=== PATIENT | male | born 1975 | race Caucasian/White ===

== ENCOUNTER 2016-03-01 10:53 | Emergency (ER) | payer MEDICAID ==
[~2016-03-01 10:53] MED LIST: ACET50TA PO; ALBU17IN INH; DEPA500T2 PO; DILA100C PO; DOCU10ELUD PO; LIDO1DIS2 TD; NEUR300C PO; OXYC-274 PO; PERC7.5T12 PO; SENO8.6T9 PO; [UNRECOGNIZED DRUG - MIXTURE] PO
[2016-03-01] MEDS ORDERED: ASPIRIN 81 MG CHEW TABLET As Ordered ONE (11:20)
--- NOTE | 2016-03-01 11:28 | REP ---
Chest one-view HISTORY: Chest pain Comparison: 01/05/2015 The lungs are clear. The heart is normal in size. The pulmonary vasculature is normal in appearance. Impression: No acute disease. Signed by Graham Will MD 03/01/2016 11:19 A
[2016-03-01 11:29] LABS: BASO % 0.4 % (0.0-1.0); EOS # 0.2 K/mm3 (0.0-0.50); EOS % 2.1 % (0.0-3.0); LARGE UNSTAINED CELL # 0.1 K/mm3 (0.0-0.4); LARGE UNSTAINED CELL % 1.5 % (0.0-4.0); LYMPH # 2.2 K/mm3 (1.5-4.5); LYMPH % 30.5 % (24.0-44.0); MEAN CORPUSCULAR HEMOGLOBIN 31.6 pg (27.0-33.0); MEAN CORPUSCULAR VOLUME 87.7 fl (80.0-96.0); MONO # 0.5 K/mm3 (0.0-0.8); MONO % 6.9 % (0.0-5.0); NEUTROPHILS # 4.2 K/mm3 (1.8-7.7); NEUTROPHILS % 58.7 % (36.0-66.0); PLATELET COUNT, AUTOMATED 178 k/mm3 (150-450); RED CELL DISTRIBUTION WIDTH 12.5 % (11.5-14.5); WHITE BLOOD COUNT 7.1 K/mm3 (4.0-10.0)
[2016-03-01 11:54] LABS: ANION GAP 9 MEQ/L (8-16); BLOOD UREA NITROGEN 11 MG/DL (7-18); CALCIUM LEVEL 8.4 MG/DL (8.5-10.1); CARBON DIOXIDE LEVEL 28 MEQ/L (21-32); CHLORIDE LEVEL 106 MEQ/L (98-107); CREATININE FOR GFR 0.74 MG/DL (0.70-1.30); GLOMERULAR FILTRATION RATE > 60.0 (>60); GLUCOSE, FASTING 134 MG/DL (70-105); POTASSIUM SERUM 3.7 MEQ/L (3.5-5.1); SODIUM LEVEL 143 MEQ/L (136-145)
[2016-03-01] MEDS ORDERED: PHENYTOIN ER 100 MG CAP As Ordered ONE (15:18)
--- NOTE | 2016-03-01 15:25 | EDDOCDS ---
Nurse's Notes [facility] Name: Festus Mccurdy Age: 40 yrs Sex: Male : 1975 Arrival Date: 03/01/2016 Time: 10:53 Bed 4 Private MD: Diagnosis: Chest pain, unspecified;Palpitations Presentation: 03/01 11:03 Presenting complaint: Patient states: chest pain radiating down left arm since kc3 yesterday morning. Pt denies shortness of breath or n/v. Aspirin was not taken prior to arrival. Adult Sepsis Screening: The patient does not have new or worsening altered mentation. Patient's respiratory rate is less than 22. Systolic blood pressure is greater than 100. Patient has a qSOFA score of 0- Negative Sepsis Screen. Suicide/Homicide risk assessment- the patient denies having any suicidal and/or homicidal ideations and does not present with any other emotional, behavioral or mental health complaints. Status: Patient is not a chief optometry service or dependent. Transition of care: patient was not received from another setting of care. 11:03 Acuity: DOMENIC Level 2 kc3 11:03 Method Of Arrival: Walkin/Carried/Asstd kc3 Triage Assessment: 11:06 General: Appears in no apparent distress, comfortable, Behavior is appropriate for age, kc3 cooperative. Pain: Location: chest Pain currently is 4 out of 10 on a pain scale. HIV screening NA for this visit Offered previously. The patient is triaged at the bedside. See Assessment in Nurses Notes section of ED record. Neurological: Level of Consciousness is awake, alert, obeys commands, Oriented to person, place, time. Cardiovascular: Rhythm is sinus rhythm Chest pain is described as Pain is 4 out of 10 on a pain scale. quality is tightness radiates to left arm(s) episodes are continuous began yesterday morning. Respiratory: Airway is patent Respiratory effort is even, unlabored, Respiratory pattern is regular, symmetrical, Denies shortness of breath. GI: Denies nausea. Derm: Skin is pink, warm & dry. Musculoskeletal: Circulation, motion, and sensation intact. Historical: - Allergies: no known allergies; - Home Meds: 1. albuterol sulfate 90 mcg/actuation Inhl HFAA 2 puffs as needed 2. Calcium + Vitamin D 600 mg calcium- 200 unit Oral tab twice a day 3. Depakote 1000mg Oral 2 times per day 4. gabapentin 100 mg Oral cap twice a day 5. meloxicam oral Unknown once daily 6. Phenytoin 400mg Oral twice a day - PMHx: Asthma; Hypertension; Seizure Disorder; TBI; - PSHx: hip surgery; pelvis ORIF; - Social history: Smoking status: Patient states was never smoker of tobacco. No barriers to communication noted, The patient speaks fluent Divehi, Speaks appropriately for age. - Family history: Not pertinent. - : The pt / caregiver states he / she is not on anticoagulants. Home medication list is obtained from the patient. - Exposure Risk Screening:: None identified. Screenin:08 Screening information is obtained from the patient. Fall risk: No risks identified. kc3 Assistance ADL's: requires no assistance with activities of daily living. Abuse/DV Screen: The patient / caregiver reports he/she is: not in a situation that causes fear, pain or injury. Nutritional screening: No deficits noted. Advance Directives: Currently, there is no health care proxy. home support is adequate. Assessment: 11:19 General: See triage note for initial assessment. . kc3 12:18 General: Appears in no apparent distress, comfortable, Behavior is appropriate for age, kc3 cooperative. Pain: Location: chest Pain currently is 3 out of 10 on a pain scale. Neurological: Level of Consciousness is awake, alert, obeys commands, Oriented to person, place, time. Cardiovascular: Rhythm is sinus rhythm. Respiratory: Airway is patent Respiratory effort is even, unlabored. 13:26 General: Appears in no apparent distress, comfortable, Behavior is appropriate for age, kc3 cooperative, Pt updated on plan of care. . Pain: Location: chest Pain currently is 3 out of 10 on a pain scale. Neurological: Level of Consciousness is awake, alert, obeys commands, Oriented to person, place, time. Cardiovascular: Rhythm is sinus rhythm. Respiratory: Respiratory effort is even, unlabored. Derm: Skin is pink, warm & dry. 14:46 General: Appears in no apparent distress, comfortable, Behavior is appropriate for age, kc3 cooperative. 15:22 General: Patient instructed on discharge instructions. Patient asked if there were any jmb questions regarding discharge, patient stated no. IV discontinued per hospital policy. Patient signed discharge instructions. Patient discharged in stable condition. . Vital Signs: 10:56 BP 153 / 85; Pulse 90; Resp 18; Temp 98.9(O); Pulse Ox 98% on R/A; Weight 158.3 kg; elp Height 5 ft. 9 in. (175.26 cm); 11:02 BP 120 / 87 (auto/); kc3 11:04 Pulse 98 MON; Pulse Ox 94% ; kc3 11:32 BP 122 / 79 (auto/); kc3 11:32 Pulse 94 MON; Pulse Ox 92% ; kc3 12:02 BP 127 / 73 (auto/); kc3 12:02 Pulse 92 MON; Pulse Ox 93% ; kc3 12:32 BP 124 / 72 (auto/); kc3 12:32 Pulse 94 MON; Pulse Ox 92% ; kc3 13:02 BP 127 / 74 (auto/); kc3 13:02 Pulse 98 MON; Pulse Ox 93% ; kc3 15:22 BP 130 / 80; Pulse 81; Resp 18; Temp 98.2(O); Pulse Ox 94% on R/A; Pain 0/10; jmb 10:56 Body Mass Index 51.54 (158.30 kg, 175.26 cm) elp Vitals: 10:56 Log In Time: March 01, 2016 at 10:54. RN notified that patient meets Red Flag elp criteria. ED Course: 10:55 Patient visited by Roma Daily PCA. elp 10:55 Patient moved to Waiting elp 10:57 Patient moved to 4 elp 10:59 Cyndi Moralez MD is Attending Physician. fg 10:59 Patient visited by Cyndi Moralez MD. fg 11:01 Iris Lugo,CARLOS ALBERTO is Primary Nurse. kc3 11:04 Triage Initiated kc3 11:08 The patient / caregiver is instructed regarding the plan of care and ED course. Cardiac kc3 monitor on. Pulse ox on. NIBP on. 11:11 Patient visited by Melanie Pickens PCA. bnb 11:11 EKG done. (by ED staff). Reviewed by Cyndi Moralez MD. bnb 11:19 B-Type Natiuretic Peptide Sent. kc3 11:19 Basic Metabolic Profile Sent. kc3 11:19 CBC with Diff Sent. kc3 11:19 Cardiac Injury Profile Sent. kc3 11:19 Troponin Sent. kc3 11:19 Inserted saline lock: 20 gauge in right antecubital area and blood collected. The kc3 patient tolerated the procedure well. Labs drawn. (by ED staff). Sent per order to lab. 11:20 Patient visited by Iris Lugo RN. kc3 11:48 Patient name changed from Festus\S\Pepe\S\Labarge\S\ to Festus\S\M\S\Labarge. EDMS 11:52 [facility] Payment Agreement was scanned into [employer] and attached to record. lg 11:52 portable chest Returned. EDMS 11:56 Patient visited by Iris Lugo RN. kc3 12:42 Patient visited by Iris Lugo RN. kc3 13:20 Patient visited by Tamiko Thomas PCA. rs6 14:00 Patient visited by Iris Lugo RN. kc3 14:34 Patient visited by Iris Lugo RN. kc3 15:22 Discontinued lock intact, bleeding controlled, pressure dressing applied, No jmb redness/swelling at site. No procedures done that require assistance. Administered Medications: 11:23 Drug: Aspirin 324 mg [aspirin 81 mg chewable tablet (4 tabs)] Route: PO; kc3 15:22 Drug: Phenytoin 300 mg [phenytoin 50 mg chewable tablet (6 tabs)] Route: PO; jmb Order Results: Lab Order: B-Type Natiuretic Peptide; SPEC'M 03/01/16 11:17 Test: BRAIN NATRIURETIC PEPTIDE; Value: < 5.0; Range: <100; Units: PG/ML; Status: F Lab Order: Basic Metabolic Profile; SPEC'M 03/01/16 11:17 Test: GLUCOSE, FASTING; Value: 134; Range: 70-105; Abnormal: Above high normal; Units: MG/DL; Status: F Test: BLOOD UREA NITROGEN; Value: 11; Range: 7-18; Units: MG/DL; Status: F Test: CREATININE FOR GFR; Value: 0.74; Range: 0.70-1.30; Units: MG/DL; Status: F Test: GLOMERULAR FILTRATION RATE; Value: > 60.0; Range: >60; Status: F Test: SODIUM LEVEL; Value: 143; Range: 136-145; Units: MEQ/L; Status: F Test: POTASSIUM SERUM; Value: 3.7; Range: 3.5-5.1; Units: MEQ/L; Status: F Test: CHLORIDE LEVEL; Value: 106; Range: 98-107; Units: MEQ/L; Status: F Test: CARBON DIOXIDE LEVEL; Value: 28; Range: 21-32; Units: MEQ/L; Status: F Test: ANION GAP; Value: 9; Range: 8-16; Units: MEQ/L; Status: F Test: CALCIUM LEVEL; Value: 8.4; Range: 8.5-10.1; Abnormal: Below low normal; Units: MG/DL; Status: F Test Note: ; Units are mL/min/1.73 m2 Chronic Kidney Disease Staging per NKF: Stage I & II GFR >=60 Normal to Mildly Decreased Stage III GFR 30-59 Moderately Decreased Stage IV GFR 15-29 Severely Decreased Stage V GFR <15 Very Little GFR Left ESRD GFR <15 on THERAPIST PHYSICAL Lab Order: CBC with Diff; SPEC'M 03/01/16 11:17 Test: WHITE BLOOD COUNT; Value: 7.1; Range: 4.0-10.0; Units: K/mm3; Status: F Test: RED BLOOD COUNT; Value: 4.93; Range: 4.30-6.10; Units: M/mm3; Status: F Test: HEMOGLOBIN; Value: 15.6; Range: 14.0-18.0; Units: g/dl; Status: F Test: HEMATOCRIT; Value: 43.3; Range: 42.0-52.0; Units: %; Status: F Test: MEAN CORPUSCULAR VOLUME; Value: 87.7; Range: 80.0-96.0; Units: fl; Status: F Test: MEAN CORPUSCULAR HEMOGLOBIN; Value: 31.6; Range: 27.0-33.0; Units: pg; Status: F Test: MEAN CORPUSCULAR HGB CONC; Value: 36.0; Range: 32.0-36.5; Units: g/dl; Status: F Test: RED CELL DISTRIBUTION WIDTH; Value: 12.5; Range: 11.5-14.5; Units: %; Status: F Test: PLATELET COUNT, AUTOMATED; Value: 178; Range: 150-450; Units: k/mm3; Status: F Test: NEUTROPHILS %; Value: 58.7; Range: 36.0-66.0; Units: %; Status: F Test: LYMPH %; Value: 30.5; Range: 24.0-44.0; Units: %; Status: F Test: MONO %; Value: 6.9; Range: 0.0-5.0; Abnormal: Above high normal; Units: %; Status: F Test: EOS %; Value: 2.1; Range: 0.0-3.0; Units: %; Status: F Test: BASO %; Value: 0.4; Range: 0.0-1.0; Units: %; Status: F Test: LARGE UNSTAINED CELL %; Value: 1.5; Range: 0.0-4.0; Units: %; Status: F Test: NEUTROPHILS #; Value: 4.2; Range: 1.8-7.7; Units: K/mm3; Status: F Test: LYMPH #; Value: 2.2; Range: 1.5-4.5; Units: K/mm3; Status: F Test: MONO #; Value: 0.5; Range: 0.0-0.8; Units: K/mm3; Status: F Test: EOS #; Value: 0.2; Range: 0.0-0.50; Units: K/mm3; Status: F Test: BASO #; Value: 0.0; Range: 0.0-0.2; Units: K/mm3; Status: F Test: LARGE UNSTAINED CELL #; Value: 0.1; Range: 0.0-0.4; Units: K/mm3; Status: F Lab Order: Cardiac Injury Profile; SPEC'M 03/01/16 11:17 Test: CPK CREATINE PHOSPHOKINASE; Value: 147; Range: 39-308; Units: U/L; Status: F Test: CK-MB VALUE MASS; Value: 3.8; Range: 0.0-3.6; Abnormal: Above high normal; Units: NG/ML; Status: F Test: MB/CK RELATIVE INDEX; Value: 2.58; Range: < OR =4; Status: F Test Note: ; DIAGNOSIS CRITERIA MMB ng/ml Relative Index (RI) NON-AMI < or = 5 N/A [place]ONE > 5 < or = 4 AMI > 5 > 4 Lab Order: Troponin; SPEC'M 03/01/16 11:17 Test: TROPONIN I; Value: < 0.02; Range: < 0.10; Units: NG/ML; Status: F Test Note: ; Troponin I Reference Interval for Siemens StatusPage LOCI: 99th Percentile= 0.00-0.045 ng/ml Risk Stratification: <= 0.10 ng/ml Decreased Risk for Adverse Clinical Events. 0.10-1.50 ng/ml Increased Risk for Adverse Clinical Events. Evaluation of additional criterion and/or repeat testing in 2-6 hours is suggested to rule out myocardial damage. >= 1.50 ng/ml Indicative of Myocardial Injury. Lab Order: PHENYTOIN; SPEC'M 03/01/16 11:17 Test: PHENYTOIN (DILANTIN); Value: 8.6; Range: 10.0-20.0; Abnormal: Below low normal; Units: UG/ML; Status: F Lab Order: VALPROIC ACID (DEPAKOTE); SPEC'M 03/01/16 11:17 Test: VALPROIC ACID (DEPAKOTE); Value: 69.4; Range: 50.0-100.0; Units: UG/ML; Status: F Radiology Order: portable chest Test: portable chest REASON FOR EXAMINATION: Chest Pain; Chest one-view; ; HISTORY: Chest pain; ; Comparison: 01/05/2015; ; The lungs are clear. The heart is normal in size. The pulmonary vasculature is; normal in appearance.; ; Impression: No acute disease.; ; ; Signed by; Graham Will MD 03/01/2016 11:19 A; Outcome: 15:08 Discharge ordered by Provider. fg 15:22 Discharge Assessment: Patient awake, alert and oriented x 3. No cognitive and/or jmb functional deficits noted. Patient verbalized understanding of disposition instructions. Patient awake and alert. obeys commands, Oriented to person, place and time. Patient verbalized understanding of disposition instructions. Patient has no functional deficits. patient administered narcotics - no. The following High Risk Discharge criteria are identified: None. Discharged to home ambulatory. Condition: stable Condition: improved. Discharge instructions given to patient, Instructed on discharge instructions, follow up and referral plans. Demonstrated understanding of instructions, Pt was receptive of discharge instructions/ teaching. No special radiology studies were completed. Property sent home with patient. 15:25 Patient left the ED. ac Signatures: Dispatcher [employer] EDMS Yessi Escoto, Reg Reg lg Killian, Roma, DISTRIBUTION CENTER ASSISTANT DISTRIBUTION CENTER ASSISTANT mynorp Julius Pickens,RN RN Tamiko Barnes, DISTRIBUTION CENTER ASSISTANT DISTRIBUTION CENTER ASSISTANT rs6 Cyndi Moralez MD MD fg Crane, Kelsi, RN RN 3 Mel[facility] Pickens, [facility] Corrections: (The following items were deleted from the chart) 12:44 12:42 PHENYTOIN (DILANTIN)+LAB sent. 3 EDMS 12:44 12:42 VALPROIC ACID (DEPAKOTE)+LAB sent. 3 EDMS MTDD
--- NOTE | 2016-03-01 15:25 | EDDOCDS ---
Physician Documentation [facility] Name: Festus Mccurdy Age: 40 yrs Sex: Male : 1975 Arrival Date: 03/01/2016 Time: 10:53 Bed 4 Private MD: Disposition: 03/01/16 15:08 Discharged to Home/Self Care. Impression: Chest pain, unspecified, Palpitations. - Condition is Stable. - Discharge Instructions: Nonspecific Chest Pain, Seizure, Adult, [place]. - Medication Reconciliation, Local Pharmacy Hours form. - Follow up: Private Physician; When: Call to arrange an appointment; Reason: Continuance of care. - Problem is new. - Symptoms have improved. Historical: - Allergies: no known allergies; - Home Meds: 1. albuterol sulfate 90 mcg/actuation Inhl HFAA 2 puffs as needed 2. Calcium + Vitamin D 600 mg calcium- 200 unit Oral tab twice a day 3. Depakote 1000mg Oral 2 times per day 4. gabapentin 100 mg Oral cap twice a day 5. meloxicam oral Unknown once daily 6. Phenytoin 400mg Oral twice a day - PMHx: Asthma; Hypertension; Seizure Disorder; TBI; - PSHx: hip surgery; pelvis ORIF; - Social history: Smoking status: Patient states was never smoker of tobacco. No barriers to communication noted, The patient speaks fluent Gambian, Speaks appropriately for age. - Family history: Not pertinent. - : The pt / caregiver states he / she is not on anticoagulants. Home medication list is obtained from the patient. - Exposure Risk Screening:: None identified. Vital Signs: 03/01 10:56 BP 153 / 85; Pulse 90; Resp 18; Temp 98.9(O); Pulse Ox 98% on R/A; Weight 158.3 kg / elp 348.99 lbs; Height 5 ft. 9 in. (175.26 cm); 11:02 BP 120 / 87 (auto/); kc3 11:04 Pulse 98 MON; Pulse Ox 94% ; kc3 11:32 BP 122 / 79 (auto/); kc3 11:32 Pulse 94 MON; Pulse Ox 92% ; kc3 12:02 BP 127 / 73 (auto/); kc3 12:02 Pulse 92 MON; Pulse Ox 93% ; kc3 12:32 BP 124 / 72 (auto/); kc3 12:32 Pulse 94 MON; Pulse Ox 92% ; kc3 13:02 BP 127 / 74 (auto/); kc3 13:02 Pulse 98 MON; Pulse Ox 93% ; kc3 15:22 BP 130 / 80; Pulse 81; Resp 18; Temp 98.2(O); Pulse Ox 94% on R/A; Pain 0/10; jmb 10:56 Body Mass Index 51.54 (158.30 kg, 175.26 cm) elp MDM: 11:00 Aspirin Chewable Tablet 324 mg PO once ordered. fg 11:00 Community Development Manager/Pulse Ox/q 30 min VS ordered. fg 11:00 IV Saline Lock ordered. fg 11:00 Rhythm Strip to chart ordered. fg 11:00 Undress patient appropriately for examination ordered. fg 11:01 portable chest Ordered. EDMS 11:01 B-Type Natiuretic Peptide Ordered. EDMS 11:01 Basic Metabolic Profile Ordered. EDMS 11:01 CBC with Diff Ordered. EDMS 11:01 Cardiac Injury Profile Ordered. EDMS 11:01 Troponin Ordered. EDMS 11:01 ECG WITH READING ER PHYS+CARDIAG ordered. EDMS 11:34 Financial registration complete. lg 11:52 [facility] Payment Agreement was scanned into [employer] and attached to record. lg 15:05 Phenytoin Chewable Tablet 300 mg PO once ordered. fg Administered Medications: 11:23 Drug: Aspirin 324 mg [aspirin 81 mg chewable tablet (4 tabs)] Route: PO; kc3 15:22 Drug: Phenytoin 300 mg [phenytoin 50 mg chewable tablet (6 tabs)] Route: PO; ac Signatures: Dispatcher [employer] EDMS Yessi Escoto, Reg Reg lg Julius Pickens RN RN kristianb Cyndi Moralez MD MD Iris Lugo,CARLOS ALBERTO RN kc3 The chart was reviewed and I authenticate all verbal orders and agree with the evaluation and treatment provided.Corrections: (The following items were deleted from the chart) 12:44 12:21 VALPROIC ACID (DEPAKOTE)+LAB ordered. EDMS EDMS 12:44 12:21 PHENYTOIN (DILANTIN)+LAB ordered. EDMS EDMS Attachments: 11:52 [facility] Payment Agreement lg MTDD
--- NOTE | 2016-03-02 06:45 | ECGEPIP ---
Stationary ECG Study [facility] - ED Test Date: 2016-03-01 Pat Name: LUCILLE GRIFFITH Department: Room: - Gender: M Communications Operator: : 1975 Requested By: DANYELLE Hay Order Number: [id number] Reading MD: Denisse Black Measurements Intervals [place] Rate: 87 P: 47 NH: 185 QRS: -5 QRSD: 118 T: 73 QT: 347 QTc: 418 Interpretive Statements SINUS RHYTHM MODERATE INTRAVENTRICULAR CONDUCTION DELAY NONSPECIFIC T-WAVE ABNORMALITY DECREASED RATE 02/09/13 Electronically Signed On 03-02-2016 6:45:19 EST by Denisse Black
--- NOTE | 2016-03-03 16:26 | EDDOCDS ---
Nurse's Notes [facility] Name: Lucille Griffith Age: 40 yrs Sex: Male : 1975 Arrival Date: 03/01/2016 Time: 10:53 Bed 4 Private MD: Diagnosis: Chest pain, unspecified;Palpitations Presentation: 03/01 11:03 Presenting complaint: Patient states: chest pain radiating down left arm since kc3 yesterday morning. Pt denies shortness of breath or n/v. Aspirin was not taken prior to arrival. Adult Sepsis Screening: The patient does not have new or worsening altered mentation. Patient's respiratory rate is less than 22. Systolic blood pressure is greater than 100. Patient has a qSOFA score of 0- Negative Sepsis Screen. Suicide/Homicide risk assessment- the patient denies having any suicidal and/or homicidal ideations and does not present with any other emotional, behavioral or mental health complaints. Status: Patient is not a service center representative or dependent. Transition of care: patient was not received from another setting of care. 11:03 Acuity: DOMENIC Level 2 kc3 11:03 Method Of Arrival: Walkin/Carried/Asstd kc3 Triage Assessment: 11:06 General: Appears in no apparent distress, comfortable, Behavior is appropriate for age, kc3 cooperative. Pain: Location: chest Pain currently is 4 out of 10 on a pain scale. HIV screening NA for this visit Offered previously. The patient is triaged at the bedside. See Assessment in Nurses Notes section of ED record. Neurological: Level of Consciousness is awake, alert, obeys commands, Oriented to person, place, time. Cardiovascular: Rhythm is sinus rhythm Chest pain is described as Pain is 4 out of 10 on a pain scale. quality is tightness radiates to left arm(s) episodes are continuous began yesterday morning. Respiratory: Airway is patent Respiratory effort is even, unlabored, Respiratory pattern is regular, symmetrical, Denies shortness of breath. GI: Denies nausea. Derm: Skin is pink, warm & dry. Musculoskeletal: Circulation, motion, and sensation intact. Historical: - Allergies: no known allergies; - Home Meds: 1. albuterol sulfate 90 mcg/actuation Inhl HFAA 2 puffs as needed 2. Calcium + Vitamin D 600 mg calcium- 200 unit Oral tab twice a day 3. Depakote 1000mg Oral 2 times per day 4. gabapentin 100 mg Oral cap twice a day 5. meloxicam oral Unknown once daily 6. Phenytoin 400mg Oral twice a day - PMHx: Asthma; Hypertension; Seizure Disorder; TBI; - PSHx: hip surgery; pelvis ORIF; - Social history: Smoking status: Patient states was never smoker of tobacco. No barriers to communication noted, The patient speaks fluent Welsh, Speaks appropriately for age. - Family history: Not pertinent. - : The pt / caregiver states he / she is not on anticoagulants. Home medication list is obtained from the patient. - Exposure Risk Screening:: None identified. Screenin:08 Screening information is obtained from the patient. Fall risk: No risks identified. kc3 Assistance ADL's: requires no assistance with activities of daily living. Abuse/DV Screen: The patient / caregiver reports he/she is: not in a situation that causes fear, pain or injury. Nutritional screening: No deficits noted. Advance Directives: Currently, there is no health care proxy. home support is adequate. Assessment: 11:19 General: See triage note for initial assessment. . kc3 12:18 General: Appears in no apparent distress, comfortable, Behavior is appropriate for age, kc3 cooperative. Pain: Location: chest Pain currently is 3 out of 10 on a pain scale. Neurological: Level of Consciousness is awake, alert, obeys commands, Oriented to person, place, time. Cardiovascular: Rhythm is sinus rhythm. Respiratory: Airway is patent Respiratory effort is even, unlabored. 13:26 General: Appears in no apparent distress, comfortable, Behavior is appropriate for age, kc3 cooperative, Pt updated on plan of care. . Pain: Location: chest Pain currently is 3 out of 10 on a pain scale. Neurological: Level of Consciousness is awake, alert, obeys commands, Oriented to person, place, time. Cardiovascular: Rhythm is sinus rhythm. Respiratory: Respiratory effort is even, unlabored. Derm: Skin is pink, warm & dry. 14:46 General: Appears in no apparent distress, comfortable, Behavior is appropriate for age, kc3 cooperative. 15:22 General: Patient instructed on discharge instructions. Patient asked if there were any jmb questions regarding discharge, patient stated no. IV discontinued per hospital policy. Patient signed discharge instructions. Patient discharged in stable condition. . Vital Signs: 10:56 BP 153 / 85; Pulse 90; Resp 18; Temp 98.9(O); Pulse Ox 98% on R/A; Weight 158.3 kg; elp Height 5 ft. 9 in. (175.26 cm); 11:02 BP 120 / 87 (auto/); kc3 11:04 Pulse 98 MON; Pulse Ox 94% ; kc3 11:32 BP 122 / 79 (auto/); kc3 11:32 Pulse 94 MON; Pulse Ox 92% ; kc3 12:02 BP 127 / 73 (auto/); kc3 12:02 Pulse 92 MON; Pulse Ox 93% ; kc3 12:32 BP 124 / 72 (auto/); kc3 12:32 Pulse 94 MON; Pulse Ox 92% ; kc3 13:02 BP 127 / 74 (auto/); kc3 13:02 Pulse 98 MON; Pulse Ox 93% ; kc3 15:22 BP 130 / 80; Pulse 81; Resp 18; Temp 98.2(O); Pulse Ox 94% on R/A; Pain 0/10; jmb 10:56 Body Mass Index 51.54 (158.30 kg, 175.26 cm) elp Vitals: 10:56 Log In Time: March 01, 2016 at 10:54. RN notified that patient meets Red Flag elp criteria. ED Course: 10:55 Patient visited by Roma Daily PCA. elp 10:55 Patient moved to Waiting elp 10:57 Patient moved to 4 elp 10:59 Cyndi Moralez MD is Attending Physician. fg 10:59 Patient visited by Cyndi Moralez MD. fg 11:01 Iris Lugo,CARLOS ALBERTO is Primary Nurse. kc3 11:04 Triage Initiated kc3 11:08 The patient / caregiver is instructed regarding the plan of care and ED course. Cardiac kc3 monitor on. Pulse ox on. NIBP on. 11:11 Patient visited by Melanie Pickens PCA. bnb 11:11 EKG done. (by ED staff). Reviewed by Cyndi Moralez MD. bnb 11:19 B-Type Natiuretic Peptide Sent. kc3 11:19 Basic Metabolic Profile Sent. kc3 11:19 CBC with Diff Sent. kc3 11:19 Cardiac Injury Profile Sent. kc3 11:19 Troponin Sent. kc3 11:19 Inserted saline lock: 20 gauge in right antecubital area and blood collected. The kc3 patient tolerated the procedure well. Labs drawn. (by ED staff). Sent per order to lab. 11:20 Patient visited by Iris Lugo RN. kc3 11:48 Patient name changed from Lucille\S\Pepe\S\Labarge\S\ to Lucille\S\M\S\Labarge. EDMS 11:52 [facility] was scanned into [employer] and attached to record. lg 11:52 portable chest Returned. EDMS 11:56 Patient visited by Iris Lugo RN. kc3 12:42 Patient visited by Iris Lugo RN. kc3 13:20 Patient visited by Tamiko Thomas, CHRISTINE. rs6 14:00 Patient visited by Iris Lugo RN. kc3 14:34 Patient visited by Iris Lugo RN. kc3 15:22 Discontinued lock intact, bleeding controlled, pressure dressing applied, No jmb redness/swelling at site. No procedures done that require assistance. 03/02 06:53 EKG-ADULT Returned. EDMS 11:23 T-Sheet-- Draft Copy was scanned into [employer] and attached to record. gb 11:23 ECG/EKG was scanned into [employer] and attached to record. gb Administered Medications: 03/01 11:23 Drug: Aspirin 324 mg [aspirin 81 mg chewable tablet (4 tabs)] Route: PO; kc3 15:22 Drug: Phenytoin 300 mg [phenytoin 50 mg chewable tablet (6 tabs)] Route: PO; jmb Order Results: Lab Order: B-Type Natiuretic Peptide; SPEC'M 03/01/16 11:17 Test: BRAIN NATRIURETIC PEPTIDE; Value: < 5.0; Range: <100; Units: PG/ML; Status: F Lab Order: Basic Metabolic Profile; SPEC'M 03/01/16 11:17 Test: GLUCOSE, FASTING; Value: 134; Range: 70-105; Abnormal: Above high normal; Units: MG/DL; Status: F Test: BLOOD UREA NITROGEN; Value: 11; Range: 7-18; Units: MG/DL; Status: F Test: CREATININE FOR GFR; Value: 0.74; Range: 0.70-1.30; Units: MG/DL; Status: F Test: GLOMERULAR FILTRATION RATE; Value: > 60.0; Range: >60; Status: F Test: SODIUM LEVEL; Value: 143; Range: 136-145; Units: MEQ/L; Status: F Test: POTASSIUM SERUM; Value: 3.7; Range: 3.5-5.1; Units: MEQ/L; Status: F Test: CHLORIDE LEVEL; Value: 106; Range: 98-107; Units: MEQ/L; Status: F Test: CARBON DIOXIDE LEVEL; Value: 28; Range: 21-32; Units: MEQ/L; Status: F Test: ANION GAP; Value: 9; Range: 8-16; Units: MEQ/L; Status: F Test: CALCIUM LEVEL; Value: 8.4; Range: 8.5-10.1; Abnormal: Below low normal; Units: MG/DL; Status: F Test Note: ; Units are mL/min/1.73 m2 Chronic Kidney Disease Staging per NKF: Stage I & II GFR >=60 Normal to Mildly Decreased Stage III GFR 30-59 Moderately Decreased Stage IV GFR 15-29 Severely Decreased Stage V GFR <15 Very Little GFR Left ESRD GFR <15 on CLINICAL EDITOR Lab Order: CBC with Diff; SPEC'M 03/01/16 11:17 Test: WHITE BLOOD COUNT; Value: 7.1; Range: 4.0-10.0; Units: K/mm3; Status: F Test: RED BLOOD COUNT; Value: 4.93; Range: 4.30-6.10; Units: M/mm3; Status: F Test: HEMOGLOBIN; Value: 15.6; Range: 14.0-18.0; Units: g/dl; Status: F Test: HEMATOCRIT; Value: 43.3; Range: 42.0-52.0; Units: %; Status: F Test: MEAN CORPUSCULAR VOLUME; Value: 87.7; Range: 80.0-96.0; Units: fl; Status: F Test: MEAN CORPUSCULAR HEMOGLOBIN; Value: 31.6; Range: 27.0-33.0; Units: pg; Status: F Test: MEAN CORPUSCULAR HGB CONC; Value: 36.0; Range: 32.0-36.5; Units: g/dl; Status: F Test: RED CELL DISTRIBUTION WIDTH; Value: 12.5; Range: 11.5-14.5; Units: %; Status: F Test: PLATELET COUNT, AUTOMATED; Value: 178; Range: 150-450; Units: k/mm3; Status: F Test: NEUTROPHILS %; Value: 58.7; Range: 36.0-66.0; Units: %; Status: F Test: LYMPH %; Value: 30.5; Range: 24.0-44.0; Units: %; Status: F Test: MONO %; Value: 6.9; Range: 0.0-5.0; Abnormal: Above high normal; Units: %; Status: F Test: EOS %; Value: 2.1; Range: 0.0-3.0; Units: %; Status: F Test: BASO %; Value: 0.4; Range: 0.0-1.0; Units: %; Status: F Test: LARGE UNSTAINED CELL %; Value: 1.5; Range: 0.0-4.0; Units: %; Status: F Test: NEUTROPHILS #; Value: 4.2; Range: 1.8-7.7; Units: K/mm3; Status: F Test: LYMPH #; Value: 2.2; Range: 1.5-4.5; Units: K/mm3; Status: F Test: MONO #; Value: 0.5; Range: 0.0-0.8; Units: K/mm3; Status: F Test: EOS #; Value: 0.2; Range: 0.0-0.50; Units: K/mm3; Status: F Test: BASO #; Value: 0.0; Range: 0.0-0.2; Units: K/mm3; Status: F Test: LARGE UNSTAINED CELL #; Value: 0.1; Range: 0.0-0.4; Units: K/mm3; Status: F Lab Order: Cardiac Injury Profile; SPEC'M 03/01/16 11:17 Test: CPK CREATINE PHOSPHOKINASE; Value: 147; Range: 39-308; Units: U/L; Status: F Test: CK-MB VALUE MASS; Value: 3.8; Range: 0.0-3.6; Abnormal: Above high normal; Units: NG/ML; Status: F Test: MB/CK RELATIVE INDEX; Value: 2.58; Range: < OR =4; Status: F Test Note: ; DIAGNOSIS CRITERIA MMB ng/ml Relative Index (RI) NON-AMI < or = 5 N/A [place]ONE > 5 < or = 4 AMI > 5 > 4 Lab Order: Troponin; SPEC'M 03/01/16 11:17 Test: TROPONIN I; Value: < 0.02; Range: < 0.10; Units: NG/ML; Status: F Test Note: ; Troponin I Reference Interval for [employer] [place] LOCI: 99th Percentile= 0.00-0.045 ng/ml Risk Stratification: <= 0.10 ng/ml Decreased Risk for Adverse Clinical Events. 0.10-1.50 ng/ml Increased Risk for Adverse Clinical Events. Evaluation of additional criterion and/or repeat testing in 2-6 hours is suggested to rule out myocardial damage. >= 1.50 ng/ml Indicative of Myocardial Injury. Lab Order: PHENYTOIN; SPEC'M 03/01/16 11:17 Test: PHENYTOIN (DILANTIN); Value: 8.6; Range: 10.0-20.0; Abnormal: Below low normal; Units: UG/ML; Status: F Lab Order: VALPROIC ACID (DEPAKOTE); SPEC'M 03/01/16 11:17 Test: VALPROIC ACID (DEPAKOTE); Value: 69.4; Range: 50.0-100.0; Units: UG/ML; Status: F Radiology Order: portable chest Test: portable chest REASON FOR EXAMINATION: Chest Pain; Chest one-view; ; HISTORY: Chest pain; ; Comparison: 01/05/2015; ; The lungs are clear. The heart is normal in size. The pulmonary vasculature is; normal in appearance.; ; Impression: No acute disease.; ; ; Signed by; Graham Will MD 03/01/2016 11:19 A; Radiology Order: EKG-ADULT Test: EKG-ADULT REASON FOR EXAMINATION: Chest Pain; Stationary ECG Study; [facility] - ED; ; Test Date: 2016-03-01; Pat Name: LUCILLE GRIFFITH Department:; Room: -; Gender: M Credit Collections Rep: rs; : 1975 Requested By: CYNDI Hay; Order Number: [id number] Reading MD: Denisse Black; Measurements; Intervals [place]; Rate: 87 P: 47; CO: 185 QRS: -5; QRSD: 118 T: 73; QT: 347; QTc: 418; Interpretive Statements; SINUS RHYTHM; MODERATE INTRAVENTRICULAR CONDUCTION DELAY; NONSPECIFIC T-WAVE ABNORMALITY; DECREASED RATE 02/09/13; Electronically Signed On 03-02-2016 6:45:19 EST by Denisse Black; Outcome: 15:08 Discharge ordered by Provider. fg 15:22 Discharge Assessment: Patient awake, alert and oriented x 3. No cognitive and/or jmb functional deficits noted. Patient verbalized understanding of disposition instructions. Patient awake and alert. obeys commands, Oriented to person, place and time. Patient verbalized understanding of disposition instructions. Patient has no functional deficits. patient administered narcotics - no. The following High Risk Discharge criteria are identified: None. Discharged to home ambulatory. Condition: stable Condition: improved. Discharge instructions given to patient, Instructed on discharge instructions, follow up and referral plans. Demonstrated understanding of instructions, Pt was receptive of discharge instructions/ teaching. No special radiology studies were completed. Property sent home with patient. 15:25 Patient left the ED. jmb Signatures: Dispatcher [employer] EDMS Kristy Parra, Reg Reg gb Yessi Escoto, Reg Reg lg Killian, Roma, INDUCTION MACHINE OPERATOR INDUCTION MACHINE OPERATOR mynorp Julius Pickens,RN RN kristianb Tamiko Thomas, INDUCTION MACHINE OPERATOR INDUCTION MACHINE OPERATOR rs6 Cyndi Moralez MD MD fg Crane, Kelsi, RN RN Melanie Nicholson, INDUCTION MACHINE OPERATOR INDUCTION MACHINE OPERATOR b Corrections: (The following items were deleted from the chart) 12:44 12:42 PHENYTOIN (DILANTIN)+LAB sent. kc3 EDMS 12:44 12:42 VALPROIC ACID (DEPAKOTE)+LAB sent. kc3 EDMS Chart Complete MTDD
--- NOTE | 2016-03-03 16:26 | EDDOCDS ---
Physician Documentation [facility] Name: Festus Mccurdy Age: 40 yrs Sex: Male : 1975 Arrival Date: 03/01/2016 Time: 10:53 Bed 4 Private MD: Disposition: 03/01/16 15:08 Discharged to Home/Self Care. Impression: Chest pain, unspecified, Palpitations. - Condition is Stable. - Discharge Instructions: Nonspecific Chest Pain, Seizure, Adult, [id number]. - Medication Reconciliation, Local Pharmacy Hours form. - Follow up: Private Physician; When: Call to arrange an appointment; Reason: Continuance of care. - Problem is new. - Symptoms have improved. Historical: - Allergies: no known allergies; - Home Meds: 1. albuterol sulfate 90 mcg/actuation Inhl HFAA 2 puffs as needed 2. Calcium + Vitamin D 600 mg calcium- 200 unit Oral tab twice a day 3. Depakote 1000mg Oral 2 times per day 4. gabapentin 100 mg Oral cap twice a day 5. meloxicam oral Unknown once daily 6. Phenytoin 400mg Oral twice a day - PMHx: Asthma; Hypertension; Seizure Disorder; TBI; - PSHx: hip surgery; pelvis ORIF; - Social history: Smoking status: Patient states was never smoker of tobacco. No barriers to communication noted, The patient speaks fluent Bolivian, Speaks appropriately for age. - Family history: Not pertinent. - : The pt / caregiver states he / she is not on anticoagulants. Home medication list is obtained from the patient. - Exposure Risk Screening:: None identified. Vital Signs: 03/01 10:56 BP 153 / 85; Pulse 90; Resp 18; Temp 98.9(O); Pulse Ox 98% on R/A; Weight 158.3 kg / elp 348.99 lbs; Height 5 ft. 9 in. (175.26 cm); 11:02 BP 120 / 87 (auto/); kc3 11:04 Pulse 98 MON; Pulse Ox 94% ; kc3 11:32 BP 122 / 79 (auto/); kc3 11:32 Pulse 94 MON; Pulse Ox 92% ; kc3 12:02 BP 127 / 73 (auto/); kc3 12:02 Pulse 92 MON; Pulse Ox 93% ; kc3 12:32 BP 124 / 72 (auto/); kc3 12:32 Pulse 94 MON; Pulse Ox 92% ; kc3 13:02 BP 127 / 74 (auto/); kc3 13:02 Pulse 98 MON; Pulse Ox 93% ; kc3 15:22 BP 130 / 80; Pulse 81; Resp 18; Temp 98.2(O); Pulse Ox 94% on R/A; Pain 0/10; jmb 10:56 Body Mass Index 51.54 (158.30 kg, 175.26 cm) elp MDM: 11:00 Aspirin Chewable Tablet 324 mg PO once ordered. fg 11:00 Malware Analyst/Pulse Ox/q 30 min VS ordered. fg 11:00 IV Saline Lock ordered. fg 11:00 Rhythm Strip to chart ordered. fg 11:00 Undress patient appropriately for examination ordered. fg 11:01 portable chest Ordered. EDMS 11:01 B-Type Natiuretic Peptide Ordered. EDMS 11:01 Basic Metabolic Profile Ordered. EDMS 11:01 CBC with Diff Ordered. EDMS 11:01 Cardiac Injury Profile Ordered. EDMS 11:01 Troponin Ordered. EDMS 11:01 ECG WITH READING ER PHYS+CARDIAG ordered. EDMS 11:34 Financial registration complete. lg 11:52 [facility] [place] was scanned into [employer] and attached to record. lg 15:05 Phenytoin Chewable Tablet 300 mg PO once ordered. fg 03/02 11:23 T-Sheet-- Draft Copy was scanned into [employer] and attached to record. gb 11:23 ECG/EKG was scanned into [employer] and attached to record. gb Administered Medications: 03/01 11:23 Drug: Aspirin 324 mg [aspirin 81 mg chewable tablet (4 tabs)] Route: PO; kc3 15:22 Drug: Phenytoin 300 mg [phenytoin 50 mg chewable tablet (6 tabs)] Route: PO; ac Signatures: Dispatcher [employer] EDMS Kristy Parra, Reg Reg gb Yessi Escoto, Reg Reg lg Julius Pickens,RN RN jmb Cyndi Moralez MD MD fg Crane, Kelsi,CARLOS ALBERTO RN kc3 The chart was reviewed and I authenticate all verbal orders and agree with the evaluation and treatment provided.Corrections: (The following items were deleted from the chart) 12:44 12:21 VALPROIC ACID (DEPAKOTE)+LAB ordered. EDMS EDMS :44 12:21 PHENYTOIN (DILANTIN)+LAB ordered. EDMS EDMS Attachments: 11:52 [facility] [place] Agreement lg 03/02 11:23 T-Sheet-- Draft Copy gb : ECG/EKG gb Chart Complete MTDD
--- NOTE | 2016-03-03 16:26 | EDDOCDS ---
Physician Documentation [facility] Name: Festus Mccurdy Age: 40 yrs Sex: Male : 1975 Arrival Date: 03/01/2016 Time: 10:53 Bed 4 Private MD: Disposition: 03/01/16 15:08 Discharged to Home/Self Care. Impression: Chest pain, unspecified, Palpitations. - Condition is Stable. - Discharge Instructions: Nonspecific Chest Pain, Seizure, Adult, Fwmy-ll-[id number]. - Medication Reconciliation, Local Pharmacy Hours form. - Follow up: Private Physician; When: Call to arrange an appointment; Reason: Continuance of care. - Problem is new. - Symptoms have improved. Historical: - Allergies: no known allergies; - Home Meds: 1. albuterol sulfate 90 mcg/actuation Inhl HFAA 2 puffs as needed 2. Calcium + Vitamin D 600 mg calcium- 200 unit Oral tab twice a day 3. Depakote 1000mg Oral 2 times per day 4. gabapentin 100 mg Oral cap twice a day 5. meloxicam oral Unknown once daily 6. Phenytoin 400mg Oral twice a day - PMHx: Asthma; Hypertension; Seizure Disorder; TBI; - PSHx: hip surgery; pelvis ORIF; - Social history: Smoking status: Patient states was never smoker of tobacco. No barriers to communication noted, The patient speaks fluent [place], Speaks appropriately for age. - Family history: Not pertinent. - : The pt / caregiver states he / she is not on anticoagulants. Home medication list is obtained from the patient. - Exposure Risk Screening:: None identified. Vital Signs: 03/01 10:56 BP 153 / 85; Pulse 90; Resp 18; Temp 98.9(O); Pulse Ox 98% on R/A; Weight 158.3 kg / elp 348.99 lbs; Height 5 ft. 9 in. (175.26 cm); 11:02 BP 120 / 87 (auto/); kc3 11:04 Pulse 98 MON; Pulse Ox 94% ; kc3 11:32 BP 122 / 79 (auto/); kc3 11:32 Pulse 94 MON; Pulse Ox 92% ; kc3 12:02 BP 127 / 73 (auto/); kc3 12:02 Pulse 92 MON; Pulse Ox 93% ; kc3 12:32 BP 124 / 72 (auto/); kc3 12:32 Pulse 94 MON; Pulse Ox 92% ; kc3 13:02 BP 127 / 74 (auto/); kc3 13:02 Pulse 98 MON; Pulse Ox 93% ; kc3 15:22 BP 130 / 80; Pulse 81; Resp 18; Temp 98.2(O); Pulse Ox 94% on R/A; Pain 0/10; jmb 10:56 Body Mass Index 51.54 (158.30 kg, 175.26 cm) elp MDM: 11:00 Aspirin Chewable Tablet 324 mg PO once ordered. fg 11:00 Reference Services Head/Pulse Ox/q 30 min VS ordered. fg 11:00 IV Saline Lock ordered. fg 11:00 Rhythm Strip to chart ordered. fg 11:00 Undress patient appropriately for examination ordered. fg 11:01 portable chest Ordered. EDMS 11:01 B-Type Natiuretic Peptide Ordered. EDMS 11:01 Basic Metabolic Profile Ordered. EDMS 11:01 CBC with Diff Ordered. EDMS 11:01 Cardiac Injury Profile Ordered. EDMS 11:01 Troponin Ordered. EDMS 11:01 ECG WITH READING ER PHYS+CARDIAG ordered. EDMS 11:34 Financial registration complete. lg 11:52 [facility] [place] was scanned into [employer] and attached to record. lg 15:05 Phenytoin Chewable Tablet 300 mg PO once ordered. fg 03/02 11:23 T-Sheet-- Draft Copy was scanned into [employer] and attached to record. gb 11:23 ECG/EKG was scanned into [employer] and attached to record. gb Administered Medications: 03/01 11:23 Drug: Aspirin 324 mg [aspirin 81 mg chewable tablet (4 tabs)] Route: PO; kc3 15:22 Drug: Phenytoin 300 mg [phenytoin 50 mg chewable tablet (6 tabs)] Route: PO; ac Signatures: Dispatcher [employer] EDMS Kristy Parra, Reg Reg gb Yessi Escoto, Reg Reg lg Julius Pickens,RN RN jmb Cyndi Moralez MD MD fg Crane, Kelsi,CARLOS ALBERTO RN kc3 The chart was reviewed and I authenticate all verbal orders and agree with the evaluation and treatment provided.Corrections: (The following items were deleted from the chart) 12:44 12:21 VALPROIC ACID (DEPAKOTE)+LAB ordered. EDMS EDMS :44 12:21 PHENYTOIN (DILANTIN)+LAB ordered. EDMS EDMS Attachments: 11:52 [facility] [place] lg 03/02 11:23 T-Sheet-- Draft Copy gb : ECG/EKG gb Chart Complete MTDD
== END 2016-03-01 15:25 | disposition home or self-care (01) ==
LOC: M ED 10:53
DX: R07.9 Chest pain, unspecified (principal); G40.909 Epilepsy, unspecified, not intractable, without status epilepticus; I10 Essential (primary) hypertension; J45.909 Unspecified asthma, uncomplicated; Z87.820 Personal history of traumatic brain injury; Z79.899 Other long term (current) drug therapy

== ENCOUNTER 2016-03-10 08:17 | Emergency (ER) | payer MEDICAID ==
[2016-03-10] MEDS ORDERED: ALBUTEROL SULFATE 2.5 MG/0.5 ML INH NEB SOLN As Ordered ONE (09:14)
--- NOTE | 2016-03-10 11:06 | REP ---
PA and lateral chest: Comparisons are 01/05/205903/01 2016. The lung chiang are clear. The cardiac size is normal The doug, mediastinum, and bony thorax are unremarkable. Impression: Negative PA and lateral chest. . There is no interval change. Signed by Jose David Dang MD 03/10/2016 09:31 A
--- NOTE | 2016-03-10 11:34 | EDDOCDS ---
Physician Documentation [facility] Name: Festus Mccurdy Age: 40 yrs Sex: Male : 1975 Arrival Date: 03/10/2016 Time: 08:17 Bed I4 / M4 Private MD: Molly Yu Disposition: 03/10/16 11:20 Discharged to Home/Self Care. Impression: Acute upper respiratory infection, unspecified, Asthma. - Condition is Stable. - Discharge Instructions: Asthma, Adult, Upper Respiratory Infection, Adult. - Prescriptions for Mucinex 600 mg - take 1 tablet by ORAL route 2 times per day; 30 tablet. benzonatate 200 mg Oral Capsule - take 1 capsule by ORAL route 3 times per day As needed; 30 capsule. Fluticasone 50 mcg/actuation Nasal [place], Suspension - inhale 2 spray by INTRANASAL route once daily; 1 bottle. Albuterol Sulfate 90 mcg/actuation Inhalation HFA Aerosol Inhaler - inhale 2 puff by INHALATION route every 4 hours As needed; 1 Inhaler. - Medication Reconciliation, Local Pharmacy Hours form. - Follow up: Molly Yu; When: Call to arrange an appointment; Reason: Recheck today's complaints, Continuance of care. - Problem is new. - Symptoms have improved. Historical: - Allergies: no known allergies; - Home Meds: 1. Calcium + Vitamin D 600 mg calcium- 200 unit Oral tab twice a day 2. Depakote 1000mg Oral 2 times per day 3. gabapentin 100 mg Oral cap twice a day 4. meloxicam oral Unknown daily prn 5. Phenytoin 400mg Oral twice a day [facility]. [facility] [address] - PMHx: Asthma; Hypertension; Seizure Disorder; TBI; - PSHx: pelvis ORIF; right hip surgery; - Social history: Smoking status: Patient states was never smoker of tobacco. No barriers to communication noted, The patient speaks fluent Yakut. - Family history: Not pertinent. - : The pt / caregiver states he / she is not on anticoagulants. Home medication list is obtained from the patient. - Exposure Risk Screening:: None identified. Vital Signs: 03/10 08:26 BP 149 / 86; Pulse 114; Resp 24; Temp 99.8(O); Pulse Ox 95% on R/A; Weight 158.3 kg / jjr 348.99 lbs (R); Height 5 ft. 9 in. (175.26 cm) (R); Pain 6/10; 10:43 BP 165 / 90; Pulse 112; Resp 22; Temp 99.6(O); Pulse Ox 94% on R/A; Pain 3/10; dem1 11:30 BP 151 / 91; Pulse 106; Resp 22; Temp 99.5(O); Pulse Ox 94% on R/A; Pain 9/10; dem1 08:26 Body Mass Index 51.54 (158.30 kg, 175.26 cm) jjr MDM: 08:46 [facility] Payment Agreement was scanned into [employer] and attached to record. lg 08:50 Financial registration complete. lg 08:54 Obtain sample by nasopharyngeal swab ordered. ar2 08:54 Albuterol 2.5 mg Nebulizer once ordered. ar2 08:55 -Influenza A&B Rapid Antigen - Nose Ordered. EDMS 08:56 Chest, 2 View (pa\E\lat) Ordered. EDMS 09:51 -Influenza A&B Rapid Antigen - Nose Reviewed. ar2 Administered Medications: 09:19 Drug: Albuterol 2.5 mg [albuterol sulfate 2.5 mg/0.5 mL solution for nebulization (0.5 js11 mL)] Route: Nebulizer; Signatures: Dispatcher [employer] EDMS Tamela Mims, RN RN Yessi Jimenez, Kevin Reg lg Kendal Hearn, RN RN Kelvin Miguel, PA-C PA-C ar2 Kristian Garzon js11 The chart was reviewed and I authenticate all verbal orders and agree with the evaluation and treatment provided.Attachments: 08:46 [facility] Payment Agreement lg MTDD
--- NOTE | 2016-03-10 11:34 | EDDOCDS ---
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 Adult Sepsis Screening: The patient does not have new or worsening altered mentation. Patient has a respiratory rate of greater than or equal to 22 (1 point). Systolic blood pressure is greater than 100. Patient has a qSOFA score of 1- Negative Sepsis Screen. Suicide/Homicide risk assessment- the patient denies having any suicidal and/or homicidal ideations and does not present with any other emotional, behavioral or mental health complaints. Status: Patient is not a community service officer or dependent. Transition of care: patient was not received from another setting of care. 08:23 Acuity: DOMENIC Level 4 jjr 08:23 Method Of Arrival: Walkin/Carried/Asstd jjr Triage Assessment: 08:29 General: Appears in no apparent distress, Behavior is appropriate for age. Pain: jjr Location: left subscapular area, right subscapular area, thoracic area and chest. HIV screening NA for this visit Offered previously. Respiratory: Onset: The symptoms/episode began/occurred yesterday, Airway is patent Respiratory effort is even, labored, Respiratory pattern is regular, Reports shortness of breath cough that is persistent. Historical: - Allergies: no known allergies; - Home Meds: 1. Calcium + Vitamin D 600 mg calcium- 200 unit Oral tab twice a day 2. Depakote 1000mg Oral 2 times per day 3. gabapentin 100 mg Oral cap twice a day 4. meloxicam oral Unknown daily prn 5. Phenytoin 400mg Oral twice a day 6. [facility] [address] - PMHx: Asthma; Hypertension; Seizure Disorder; TBI; - PSHx: pelvis ORIF; right hip surgery; - Social history: Smoking status: Patient states was never smoker of tobacco. No barriers to communication noted, The patient speaks fluent Spanish. - Family history: Not pertinent. - : The pt / caregiver states he / she is not on anticoagulants. Home medication list is obtained from the patient. - Exposure Risk Screening:: None identified. Screenin:36 Screening information is obtained from the patient. Fall risk: No risks identified. srm Assistance ADL's: requires no assistance with activities of daily living. Abuse/DV Screen: The patient / caregiver reports he/she is: not in a situation that causes fear, pain or injury. Nutritional screening: No deficits noted. Advance Directives: There is no active DNR order. home support is adequate. Assessment: 08:36 General: Appears in no apparent distress, Behavior is appropriate for age, cooperative. srm Cardiovascular: Capillary refill < 3 seconds in bilateral fingers. Respiratory: Airway is patent Respiratory effort is even, unlabored, Breath sounds are clear bilaterally. harsh cough. GI: Reports all over abd pain with cough. Derm: No deficits noted. 11:33 General: Appears in no apparent distress, reports continued cough and shortness of jjr breath. General: Appears obese. Neurological: No deficits noted. Respiratory: Airway is patent Respiratory effort is even, labored, Respiratory pattern is regular. Vital Signs: 08:26 BP 149 / 86; Pulse 114; Resp 24; Temp 99.8(O); Pulse Ox 95% on R/A; Weight 158.3 kg [facility] (R); Height 5 ft. 9 in. (175.26 cm) (R); Pain 6/10; 10:43 BP 165 / 90; Pulse 112; Resp 22; Temp 99.6(O); Pulse Ox 94% on R/A; Pain 3/10; dem1 11:30 BP 151 / 91; Pulse 106; Resp 22; Temp 99.5(O); Pulse Ox 94% on R/A; Pain 9/10; dem1 08:26 Body Mass Index 51.54 (158.30 kg, 175.26 cm) [facility] Vitals: 08:26 Log In Time: March 10, 2016 at 08:16. [facility] ED Course: 08:18 Patient visited by Tammy Rodriguez. mm15 08:18 Molly Yu is Private Physician. mm15 08:18 Patient moved to Waiting mm15 08:24 Triage Initiated jr 08:30 Patient moved to / M4 jjr 08:36 The patient / caregiver is instructed regarding the plan of care and ED course. Patient srm has correct armband on for positive identification. Placed in gown. Bed in low position. Call light in reach. 08:37 Patient visited by Tamela Mims RN. srm 08:46 [facility] Payment Agreement was scanned into [employer] and attached to record. lg 08:49 Kelvin Edwards PA-C is PHCP. ar2 08:49 Kemal Resendez MD is Attending Physician. ar2 08:49 Patient visited by Kelvin Edwards PA-C. ar2 09:07 -Influenza A&B Rapid Antigen - Nose Sent. kc3 09:17 Patient visited by Iris Lugo RN. kc3 09:24 Patient moved to Radiology dem1 09:31 Patient moved to I4 / M4 bh4 10:03 Patient visited by Iris Lugo RN. kc3 10:44 Patient visited by Patti Barth. dem1 11:15 Chest, 2 View (pa\E\lat) Returned. EDMS 11:20 Molly Yu is Referral Physician. ar2 11:30 Patient visited by Patti Barth. dem1 11:33 No IV's were initiated during this patient's visit. No procedures done that require jjr assistance. Administered Medications: 09:19 Drug: Albuterol 2.5 mg [albuterol sulfate 2.5 mg/0.5 mL solution for nebulization (0.5 js11 mL)] Route: Nebulizer; RT: 09:19 Initial Med Neb Given as ordered Patient was instructed and evaluated on procedure [id number] Patient tolerated procedure well without adverse effect. Oxygen is room air. Respiratory: Breath sounds are diminished bilaterally. Breath sounds with wheezes bilaterally. at expiration. Order Results: Lab Order: -Influenza A&B Rapid Antigen - Nose; SPEC'M 03/10/16 09:06 Test: INFLUENZA A RAPID SCR by ICA; Value: INFLUENZA A RESULTS NEGATIVE; Status: F Test: INFLUENZA A RAPID SCR by ICA; Value: Comments:; Status: F Test: INFLUENZA B RAPID SCR by ICA; Value: INFLUENZA B RESULTS NEGATIVE; Status: F Test Note: ; The Influenza test is a direct rapid immunoassay for the qualitative detection of Influenza viral antigen. Cell culture (Viral Culture) testing should be considered to confirm NEGATIVE results and to assist in detecting other viruses that can provide similar clinical symptoms. Please contact the lab within 24 hours ([phone]) if confirmatory testing is desired. Radiology Order: Chest, 2 View (pa\E\lat) Test: Chest, 2 View (pa\E\lat) REASON FOR EXAMINATION: cough, sob, fever; PA and lateral chest:; ; Comparisons are 01/05/205903/01 2016.; ; The lung chiang are clear. The cardiac size is normal; ; The doug, mediastinum, and bony thorax are unremarkable.; ; Impression:; ; Negative PA and lateral chest. .; ; There is no interval change.; ; ; Signed by; Jose David Dang MD 03/10/2016 09:31 A; Outcome: 11:20 Discharge ordered by Provider. ar2 11:34 Discharge Assessment: patient administered narcotics - no. The following High Risk jjr Discharge criteria are identified: None. Discharged to home ambulatory. Condition: stable. Discharge instructions given to patient, Instructed on discharge instructions, follow up and referral plans. medication usage, Demonstrated understanding of instructions, medications, Prescriptions given X 4. No special radiology studies were completed. Property sent home with patient. 11:34 Patient left the ED. jjr Signatures: Dispatcher [employer] EDMS Tamela Mims, RN RN Yessi Jimenez, Kendal Barry lg, RN RN arlettejr Kelvin Edwards, PADeb PA-C ar2 Sara Foster 4 Kristian Garzon js11 Patti Barth1 Tammy Rodriguez mm15 Iris Lugo,CARLOS ALBERTO RN kc3 MTDD
--- NOTE | 2016-03-12 12:35 | EDDOCDS ---
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 Adult Sepsis Screening: The patient does not have new or worsening altered mentation. Patient has a respiratory rate of greater than or equal to 22 (1 point). Systolic blood pressure is greater than 100. Patient has a qSOFA score of 1- Negative Sepsis Screen. Suicide/Homicide risk assessment- the patient denies having any suicidal and/or homicidal ideations and does not present with any other emotional, behavioral or mental health complaints. Status: Patient is not a family service worker or dependent. Transition of care: patient was not received from another setting of care. 08:23 Acuity: DOMENIC Level 4 jjr 08:23 Method Of Arrival: Walkin/Carried/Asstd jjr Triage Assessment: 08:29 General: Appears in no apparent distress, Behavior is appropriate for age. Pain: jjr Location: left subscapular area, right subscapular area, thoracic area and chest. HIV screening NA for this visit Offered previously. Respiratory: Onset: The symptoms/episode began/occurred yesterday, Airway is patent Respiratory effort is even, labored, Respiratory pattern is regular, Reports shortness of breath cough that is persistent. Historical: - Allergies: no known allergies; - Home Meds: 1. Calcium + Vitamin D 600 mg calcium- 200 unit Oral tab twice a day 2. Depakote 1000mg Oral 2 times per day 3. gabapentin 100 mg Oral cap twice a day 4. meloxicam oral Unknown daily prn 5. Phenytoin 400mg Oral twice a day 6. [facility] [address] - PMHx: Asthma; Hypertension; Seizure Disorder; TBI; - PSHx: pelvis ORIF; right hip surgery; - Social history: Smoking status: Patient states was never smoker of tobacco. No barriers to communication noted, The patient speaks fluent Azeri. - Family history: Not pertinent. - : The pt / caregiver states he / she is not on anticoagulants. Home medication list is obtained from the patient. - Exposure Risk Screening:: None identified. Screenin:36 Screening information is obtained from the patient. Fall risk: No risks identified. srm Assistance ADL's: requires no assistance with activities of daily living. Abuse/DV Screen: The patient / caregiver reports he/she is: not in a situation that causes fear, pain or injury. Nutritional screening: No deficits noted. Advance Directives: There is no active DNR order. home support is adequate. Assessment: 08:36 General: Appears in no apparent distress, Behavior is appropriate for age, cooperative. srm Cardiovascular: Capillary refill < 3 seconds in bilateral fingers. Respiratory: Airway is patent Respiratory effort is even, unlabored, Breath sounds are clear bilaterally. harsh cough. GI: Reports all over abd pain with cough. Derm: No deficits noted. 11:33 General: Appears in no apparent distress, reports continued cough and shortness of jjr breath. General: Appears obese. Neurological: No deficits noted. Respiratory: Airway is patent Respiratory effort is even, labored, Respiratory pattern is regular. Vital Signs: 08:26 BP 149 / 86; Pulse 114; Resp 24; Temp 99.8(O); Pulse Ox 95% on R/A; Weight 158.3 kg [facility] (R); Height 5 ft. 9 in. (175.26 cm) (R); Pain 6/10; 10:43 BP 165 / 90; Pulse 112; Resp 22; Temp 99.6(O); Pulse Ox 94% on R/A; Pain 3/10; dem1 11:30 BP 151 / 91; Pulse 106; Resp 22; Temp 99.5(O); Pulse Ox 94% on R/A; Pain 9/10; dem1 08:26 Body Mass Index 51.54 (158.30 kg, 175.26 cm) [facility] Vitals: 08:26 Log In Time: March 10, 2016 at 08:16. [facility] ED Course: 08:18 Patient visited by Tammy Rodriguez. mm15 08:18 Molly Yu is Private Physician. mm15 08:18 Patient moved to Waiting mm15 08:24 Triage Initiated jr 08:30 Patient moved to / M4 jjr 08:36 The patient / caregiver is instructed regarding the plan of care and ED course. Patient srm has correct armband on for positive identification. Placed in gown. Bed in low position. Call light in reach. 08:37 Patient visited by Tamela Mims RN. srm 08:46 [facility] Payment Agreement was scanned into [employer] and attached to record. lg 08:49 Kelvin Edwards PA-C is PHCP. ar2 08:49 Kemal Resendez MD is Attending Physician. ar2 08:49 Patient visited by Kelvin Edwards PA-C. ar2 09:07 -Influenza A&B Rapid Antigen - Nose Sent. kc3 09:17 Patient visited by Iris Lugo RN. kc3 09:24 Patient moved to Radiology dem1 09:31 Patient moved to I4 / M4 bh4 10:03 Patient visited by Iris Lugo RN. kc3 10:44 Patient visited by Patti Barth. dem1 11:15 Chest, 2 View (pa\E\lat) Returned. EDMS 11:20 Molly Yu is Referral Physician. ar2 11:30 Patient visited by Patti Barth. dem1 11:33 No IV's were initiated during this patient's visit. No procedures done that require jjr assistance. 15:16 T-Sheet-- Draft Copy was scanned into [employer] and attached to record. gb 15:16 Radiology Report was scanned into [employer] and attached to record. gb Administered Medications: 09:19 Drug: Albuterol 2.5 mg [albuterol sulfate 2.5 mg/0.5 mL solution for nebulization (0.5 js11 mL)] Route: Nebulizer; RT: 09:19 Initial Med Neb Given as ordered Patient was instructed and evaluated on procedure js11 Patient tolerated procedure well without adverse effect. Oxygen is room air. Respiratory: Breath sounds are diminished bilaterally. Breath sounds with wheezes bilaterally. at expiration. Order Results: Lab Order: -Influenza A&B Rapid Antigen - Nose; SPEC'M 03/10/16 09:06 Test: INFLUENZA A RAPID SCR by ICA; Value: INFLUENZA A RESULTS NEGATIVE; Status: F Test: INFLUENZA A RAPID SCR by ICA; Value: Comments:; Status: F Test: INFLUENZA B RAPID SCR by ICA; Value: INFLUENZA B RESULTS NEGATIVE; Status: F Test Note: ; The Influenza test is a direct rapid immunoassay for the qualitative detection of Influenza viral antigen. Cell culture (Viral Culture) testing should be considered to confirm NEGATIVE results and to assist in detecting other viruses that can provide similar clinical symptoms. Please contact the lab within 24 hours ([phone]) if confirmatory testing is desired. Radiology Order: Chest, 2 View (pa\E\lat) Test: Chest, 2 View (pa\E\lat) REASON FOR EXAMINATION: cough, sob, fever; PA and lateral chest:; ; Comparisons are 01/05/205903/01 2016.; ; The lung chiang are clear. The cardiac size is normal; ; The doug, mediastinum, and bony thorax are unremarkable.; ; Impression:; ; Negative PA and lateral chest. .; ; There is no interval change.; ; ; Signed by; Jose David Dang MD 03/10/2016 09:31 A; Outcome: 11:20 Discharge ordered by Provider. ar2 11:34 Discharge Assessment: patient administered narcotics - no. The following High Risk jjr Discharge criteria are identified: None. Discharged to home ambulatory. Condition: stable. Discharge instructions given to patient, Instructed on discharge instructions, follow up and referral plans. medication usage, Demonstrated understanding of instructions, medications, Prescriptions given X 4. No special radiology studies were completed. Property sent home with patient. 11:34 Patient left the ED. jjr Signatures: Dispatcher [employer] EDMS Tamela Mims RN RN [facility] Kristy Parra, Reg Reg gb Yessi Escoto, Reg Reg lg Kendal Hearn RN RN jjr Kelvin Edwards, PA-C PA-C ar2 Sara Foster 4 Kristian Garzon js11 Patti Barth dem1 Tammy Rodriguez mm15 Iris Lugo,RN RN kc3 Chart Complete MTDD
--- NOTE | 2016-03-12 12:35 | EDDOCDS ---
Physician Documentation [facility] Name: Festus Mccurdy Age: 40 yrs Sex: Male : 1975 Arrival Date: 03/10/2016 Time: 08:17 Bed I4 / M4 Private MD: Molly Yu Disposition: 03/10/16 11:20 Discharged to Home/Self Care. Impression: Acute upper respiratory infection, unspecified, Asthma. - Condition is Stable. - Discharge Instructions: Asthma, Adult, Upper Respiratory Infection, Adult. - Prescriptions for Mucinex 600 mg - take 1 tablet by ORAL route 2 times per day; 30 tablet. benzonatate 200 mg Oral Capsule - take 1 capsule by ORAL route 3 times per day As needed; 30 capsule. Fluticasone 50 mcg/actuation Nasal [place], Suspension - inhale 2 spray by INTRANASAL route once daily; 1 bottle. Albuterol Sulfate 90 mcg/actuation Inhalation HFA Aerosol Inhaler - inhale 2 puff by INHALATION route every 4 hours As needed; 1 Inhaler. - Medication Reconciliation, Local Pharmacy Hours form. - Follow up: Molly Yu; When: Call to arrange an appointment; Reason: Recheck today's complaints, Continuance of care. - Problem is new. - Symptoms have improved. Historical: - Allergies: no known allergies; - Home Meds: 1. Calcium + Vitamin D 600 mg calcium- 200 unit Oral tab twice a day 2. Depakote 1000mg Oral 2 times per day 3. gabapentin 100 mg Oral cap twice a day 4. meloxicam oral Unknown daily prn 5. Phenytoin 400mg Oral twice a day 6. [facility] [address] - PMHx: Asthma; Hypertension; Seizure Disorder; TBI; - PSHx: pelvis ORIF; right hip surgery; - Social history: Smoking status: Patient states was never smoker of tobacco. No barriers to communication noted, The patient speaks fluent Wolof. - Family history: Not pertinent. - : The pt / caregiver states he / she is not on anticoagulants. Home medication list is obtained from the patient. - Exposure Risk Screening:: None identified. Vital Signs: 03/10 08:26 BP 149 / 86; Pulse 114; Resp 24; Temp 99.8(O); Pulse Ox 95% on R/A; Weight 158.3 kg / jjr 348.99 lbs (R); Height 5 ft. 9 in. (175.26 cm) (R); Pain 6/10; 10:43 BP 165 / 90; Pulse 112; Resp 22; Temp 99.6(O); Pulse Ox 94% on R/A; Pain 3/10; dem1 11:30 BP 151 / 91; Pulse 106; Resp 22; Temp 99.5(O); Pulse Ox 94% on R/A; Pain 9/10; dem1 08:26 Body Mass Index 51.54 (158.30 kg, 175.26 cm) jjr MDM: 08:46 [facility] Payment Agreement was scanned into [employer] and attached to record. lg 08:50 Financial registration complete. lg 08:54 Obtain sample by nasopharyngeal swab ordered. ar2 08:54 Albuterol 2.5 mg Nebulizer once ordered. ar2 08:55 -Influenza A&B Rapid Antigen - Nose Ordered. EDMS 08:56 Chest, 2 View (pa\E\lat) Ordered. EDMS 09:51 -Influenza A&B Rapid Antigen - Nose Reviewed. ar2 15:16 T-Sheet-- Draft Copy was scanned into [employer] and attached to record. gb 15:16 Radiology Report was scanned into [employer] and attached to record. gb Administered Medications: 09:19 Drug: Albuterol 2.5 mg [albuterol sulfate 2.5 mg/0.5 mL solution for nebulization (0.5 js11 mL)] Route: Nebulizer; Signatures: Dispatcher [employer] EDMS Tamela Mims, CARLOS ALBERTO CARCAMO [facility] Kristy Parra, Reg Reg gb Yessi Escoto, Reg Reg lg Kendal Hearn RN RN jjr Robertshaw, Aaron, PA-C PA-C ar2 Kristian Garzon js11 The chart was reviewed and I authenticate all verbal orders and agree with the evaluation and treatment provided.Attachments: 08:46 [facility] Payment Agreement lg 15:16 T-Sheet-- Draft Copy gb Chart Complete MTDD
--- NOTE | 2016-03-12 12:35 | EDDOCDS ---
Physician Documentation Name: Festus Mccurdy Age: 40 yrs Sex: Male : 1975 Arrival Date: 03/10/2016 Time: 08:17 Bed I4 / M4 Private MD: Molly Yu Disposition: 03/10/16 11:20 Discharged to Home/Self Care. Impression: Acute upper respiratory infection, unspecified, Asthma. - Condition is Stable. - Discharge Instructions: Asthma, Adult, Upper Respiratory Infection, Adult. - Prescriptions for Mucinex 600 mg - take 1 tablet by ORAL route 2 times per day; 30 tablet. benzonatate 200 mg Oral Capsule - take 1 capsule by ORAL route 3 times per day As needed; 30 capsule. Fluticasone 50 mcg/actuation Nasal [place], Suspension - inhale 2 spray by INTRANASAL route once daily; 1 bottle. Albuterol Sulfate 90 mcg/actuation Inhalation HFA Aerosol Inhaler - inhale 2 puff by INHALATION route every 4 hours As needed; 1 Inhaler. - Medication Reconciliation, Local Pharmacy Hours form. - Follow up: Molly Yu; When: Call to arrange an appointment; Reason: Recheck today's complaints, Continuance of care. - Problem is new. - Symptoms have improved. Historical: - Allergies: no known allergies; - Home Meds: 1. Calcium + Vitamin D 600 mg calcium- 200 unit Oral tab twice a day 2. Depakote 1000mg Oral 2 times per day 3. gabapentin 100 mg Oral cap twice a day 4. meloxicam oral Unknown daily prn 5. Phenytoin 400mg Oral twice a day 6. [facility] [address] - PMHx: Asthma; Hypertension; Seizure Disorder; TBI; - PSHx: pelvis ORIF; right hip surgery; - Social history: Smoking status: Patient states was never smoker of tobacco. No barriers to communication noted, The patient speaks fluent Kiswahili. - Family history: Not pertinent. - : The pt / caregiver states he / she is not on anticoagulants. Home medication list is obtained from the patient. - Exposure Risk Screening:: None identified. Vital Signs: 03/10 08:26 BP 149 / 86; Pulse 114; Resp 24; Temp 99.8(O); Pulse Ox 95% on R/A; Weight 158.3 kg / jjr 348.99 lbs (R); Height 5 ft. 9 in. (175.26 cm) (R); Pain 6/10; 10:43 BP 165 / 90; Pulse 112; Resp 22; Temp 99.6(O); Pulse Ox 94% on R/A; Pain 3/10; dem1 11:30 BP 151 / 91; Pulse 106; Resp 22; Temp 99.5(O); Pulse Ox 94% on R/A; Pain 9/10; dem1 08:26 Body Mass Index 51.54 (158.30 kg, 175.26 cm) jjr MDM: 08:46 [facility] Payment Agreement was scanned into [employer] and attached to record. lg 08:50 Financial registration complete. lg 08:54 Obtain sample by nasopharyngeal swab ordered. ar2 08:54 Albuterol 2.5 mg Nebulizer once ordered. ar2 08:55 -Influenza A&B Rapid Antigen - Nose Ordered. EDMS 08:56 Chest, 2 View (pa\E\lat) Ordered. EDMS 09:51 -Influenza A&B Rapid Antigen - Nose Reviewed. ar2 15:16 T-Sheet-- Draft Copy was scanned into [employer] and attached to record. gb 15:16 Radiology Report was scanned into [employer] and attached to record. gb Administered Medications: 09:19 Drug: Albuterol 2.5 mg [albuterol sulfate 2.5 mg/0.5 mL solution for nebulization (0.5 js11 mL)] Route: Nebulizer; Signatures: Dispatcher [employer] EDMS Tamela Mims, CARLOS ALBERTO CARCAMO [facility] Kristy Parra, Reg Reg gb Yessi Escoto, Reg Reg lg Kendal Hearn RN RN jjr Robertshaw, Aaron, PA-C PA-C ar2 Kristian Garzon js11 The chart was reviewed and I authenticate all verbal orders and agree with the evaluation and treatment provided.Attachments: 08:46 [facility] Payment Agreement lg 15:16 T-Sheet-- Draft Copy gb Chart Complete MTDD
== END 2016-03-10 11:34 | disposition home or self-care (01) ==
LOC: M ED 08:17
DX: J06.9 Acute upper respiratory infection, unspecified (principal); J45.909 Unspecified asthma, uncomplicated; I10 Essential (primary) hypertension; G40.909 Epilepsy, unspecified, not intractable, without status epilepticus; Z87.820 Personal history of traumatic brain injury; Z79.899 Other long term (current) drug therapy

== ENCOUNTER → 2016-09-25 | Outpatient (CLI) | payer MEDICAID ==
[~2016-09-25] MED LIST changes: +LAMO200T PO; +ZOLO100T PO
[2016-09-25 06:57] LABS: BASO % 0.5 % (0.0-1.0); EOS # 0.1 K/mm3 (0.0-0.50); LYMPH # 1.9 K/mm3 (1.5-4.5); LYMPH % 25.3 % (24.0-44.0); MEAN CORPUSCULAR HEMOGLOBIN 30.9 pg (27.0-33.0); MEAN CORPUSCULAR HGB CONC 34.6 g/dl (32.0-36.5); MEAN CORPUSCULAR VOLUME 89.2 fl (80.0-96.0); MONO # 0.5 K/mm3 (0.0-0.8); NEUTROPHILS # 4.6 K/mm3 (1.8-7.7); NEUTROPHILS % 64.6 % (36.0-66.0); RED CELL DISTRIBUTION WIDTH 12.9 % (11.5-14.5); WHITE BLOOD COUNT 7.2 K/mm3 (4.0-10.0)
[2016-09-25 07:27] LABS: ALBUMIN/GLOBULIN RATIO 1.25 (1.00-1.93); ALKALINE PHOSPHATASE 80 U/L (45-117); ALT/SGPT 20 U/L (12-78); ANION GAP 8 MEQ/L (8-16); AST/SGOT 12 U/L (15-37); BILIRUBIN,TOTAL 0.3 MG/DL (0.2-1.0); BLOOD UREA NITROGEN 9 MG/DL (7-18); CARBON DIOXIDE LEVEL 26 MEQ/L (21-32); CHLORIDE LEVEL 108 MEQ/L (98-107); CHOLESTEROL LEVEL 177 MG/DL (<200); CREATININE FOR GFR 0.74 MG/DL (0.70-1.30); FREE T4 0.85 NG/DL (0.76-1.46); GLOMERULAR FILTRATION RATE > 60.0 (>60); GLUCOSE, FASTING 102 MG/DL (70-105); SODIUM LEVEL 142 MEQ/L (136-145); TOTAL PROTEIN 7.2 GM/DL (6.4-8.2); TRIGLYCERIDES LEVEL 74 MG/DL (<150)
== END ==
LOC: M LAB 06:06
PROVIDERS: ATTEND Nurse Practitioner Adult Health
DX: R56.9 Unspecified convulsions (principal); E78.4 Other hyperlipidemia; E55.9 Vitamin D deficiency, unspecified; Z79.899 Other long term (current) drug therapy

== ENCOUNTER 2016-10-27 18:23 | Emergency (ER) | payer MEDICAID ==
[~2016-10-27] VITALS: Ht 175.3 cm; Wt 154.6 kg
[2016-10-27 18:23] VITALS: BP 158/104
[~2016-10-27 18:23] MED LIST changes: -LAMO200T PO; -ZOLO100T PO
[2016-10-28] MEDS ORDERED: ZOLO100T PO (05:40)
[2016-10-28] MEDS ORDERED: LAMO200T PO (05:40)
== END 2016-10-27 18:52 | disposition left against medical advice (07) ==
LOC: M ED 18:23
DX: M25.559 Pain in unspecified hip (principal); Z53.29 Procedure and treatment not carried out because of patient's decision for other reasons

== ENCOUNTER 2016-10-28 05:19 | Emergency (ER) | payer MEDICAID ==
[~2016-10-28] VITALS: Ht 175.3 cm; Wt 154.6 kg
[2016-10-28 05:32] VITALS: BP 145/85
[2016-10-28] MEDS ORDERED: ZOLO100T PO (05:40)
[2016-10-28] MEDS ORDERED: LAMO200T PO (05:40)
== END 2016-10-28 06:57 | disposition left against medical advice (07) ==
LOC: M ED 05:19
DX: R10.9 Unspecified abdominal pain (principal); Z53.29 Procedure and treatment not carried out because of patient's decision for other reasons

== ENCOUNTER 2016-11-09 13:41 | Emergency (ER) | payer MEDICAID ==
[2016-11-09] MEDS ORDERED: NS 500 ML IV ONE (14:15)
[2016-11-09 14:40] LABS: ABG BASE EXCESS -0.1 (-2.0-2.0); ABG HCO3 24.6 MEQ/L (22.0-26.0); ABG PARTIAL PRESSURE CO2 40.7 mmHg (35.0-45.0); ABG PARTIAL PRESSURE O2 79.6 mmHg (75.0-100.0); ABG STANDARD HCO3 24.4 MEQ/L (22.0-26.0); ABG TOTAL CO2 25.9 MEQ/L (22.0-29.0)
[2016-11-09 14:52] LABS: ALBUMIN 3.7 GM/DL (3.2-5.2); ALBUMIN/GLOBULIN RATIO 1.09 (1.00-1.93); ALKALINE PHOSPHATASE 87 U/L (45-117); ALT/SGPT 25 U/L (12-78); ANION GAP 6 MEQ/L (8-16); AST/SGOT 14 U/L (15-37); BILIRUBIN,DIRECT < 0.1 MG/DL (0.0-0.2); BILIRUBIN,TOTAL 0.2 MG/DL (0.2-1.0); BLOOD UREA NITROGEN 8 MG/DL (7-18); CALCIUM LEVEL 8.5 MG/DL (8.5-10.1); CARBON DIOXIDE LEVEL 29 MEQ/L (21-32); CHLORIDE LEVEL 106 MEQ/L (98-107); CREATININE FOR GFR 0.62 MG/DL (0.70-1.30); GLOMERULAR FILTRATION RATE > 60.0 (>60); GLUCOSE, FASTING 148 MG/DL (70-105); POTASSIUM SERUM 3.8 MEQ/L (3.5-5.1); SODIUM LEVEL 141 MEQ/L (136-145); TOTAL PROTEIN 7.1 GM/DL (6.4-8.2)
[2016-11-09 14:58] LABS: BASO # 0.1 10^3/uL (0.0-0.2); BASO % 0.7 % (0.0-1.0); EOS # 0.1 10^3/uL (0.0-0.50); EOS % 1.5 % (0.0-3.0); LYMPH # 1.5 10^3/uL (1.5-4.5); LYMPH % 19.9 % (24.0-44.0); MEAN CORPUSCULAR HEMOGLOBIN 30.3 pg (27.0-33.0); MEAN CORPUSCULAR HGB CONC 34.3 g/dl (32.0-36.5); MEAN CORPUSCULAR VOLUME 88.4 fl (80.0-96.0); MONO # 0.5 10^3/uL (0.0-0.8); NEUTROPHILS # 5.2 10^3/uL (1.8-7.7); NEUTROPHILS % 68.9 % (36.0-66.0); PLATELET COUNT, AUTOMATED 240 10^3/uL (150-450); WHITE BLOOD COUNT 7.6 10^3/uL (4.0-10.0)
--- NOTE | 2016-11-09 15:04 | REP ---
CT Head without contrast HISTORY: Altered mental status COMPARISON: 02/09/2013 An area of decreased attenuation is present in the posterior right temporal lobe. There is dilatation of the overlying cortical sulci and atrium and occipital horn of the right lateral ventricle. This represents an old infarction. There is no intraparenchymal hemorrhage, acute infarct, mass or midline shift. T the ventricular system is dilated consistent with minimal volume loss. There is no extra cerebral collection. There is no fracture. The visualized sinuses are clear. IMPRESSION: 1. 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 2. Minimal volume loss. Signed by Graham Will MD 11/09/2016 02:56 P
--- NOTE | 2016-11-09 15:05 | REP ---
Chest one-view HISTORY: Altered mental status Comparison: 03/10/2016 The lungs are clear. The heart is normal in size. The pulmonary vasculature is normal in appearance. Impression: No acute disease. Signed by Graham Will MD 11/09/2016 02:57 P
[2016-11-09] MEDS ORDERED: KETOROLAC 30 MG/ML VIAL (J1885) IV ONE (15:30)
[2016-11-09] MEDS ORDERED: ACETAMINOPHEN TAB 650MG DOSE (2X325MG) PO ONE (17:30)
[2016-11-09 19:21] VITALS: BP 186/96
--- NOTE | 2016-11-10 08:25 | ECGEPIP ---
Stationary ECG Study [facility] - ED Test Date: 2016-11-09 Pat Name: LUCILLE GRIFFITH Department: Room: - Gender: M Gis Administrator: simón : 1975 Requested By: SKINNY Nicole Order Number: [id number] Reading MD: Denisse Black Measurements Intervals [place] Rate: 81 P: 34 VA: 173 QRS: -6 QRSD: 122 T: 58 QT: 353 QTc: 410 Interpretive Statements SINUS RHYTHM MODERATE INTRAVENTRICULAR CONDUCTION DELAY NONSPECIFIC T-WAVE ABNORMALITY SIMILAR 03/01/16 Electronically Signed On 11-10-2016 8:25:18 EDT by Denisse Black
== END 2016-11-09 19:29 | disposition home or self-care (01) ==
LOC: M ED 13:41
DX: G93.41 Metabolic encephalopathy (principal); R56.9 Unspecified convulsions; J45.909 Unspecified asthma, uncomplicated; E78.5 Hyperlipidemia, unspecified; Z79.899 Other long term (current) drug therapy; Z88.8 Allergy status to other drugs, medicaments and biological substances
CPT/HCPCS: 36600; 70450; 71010; 80048; 80076; 82140; 82550; 82553; 82803; 83605; 84443; 85025; 87040; 93005; 93041; 96374; 99285; G0480; J1885

== ENCOUNTER → 2016-11-09 | Outpatient (CLI) | payer MEDICAID ==
[~2016-11-09] MED LIST changes: +LAMO200T PO; +ZOLO100T PO
[2016-11-21 12:26] LABS: PHENYTOIN,TOTAL 6.8 ug/mL (10.0-20.0)
== END ==
LOC: M LAB 10:13
PROVIDERS: ATTEND Nurse Practitioner
DX: G40.909 Epilepsy, unspecified, not intractable, without status epilepticus (principal)

== ENCOUNTER → 2017-01-23 | Outpatient (CLI) | payer MEDICAID | LOC: M LAB 13:29 | PROVIDERS: ATTEND Nurse Practitioner | DX: G40.909 Epilepsy, unspecified, not intractable, without status epilepticus (principal) ==

== ENCOUNTER → 2017-02-09 | Outpatient (CLI) | payer MEDICAID ==
[2017-02-09 12:05] LABS: BASO # 0.1 10^3/uL (0.0-0.2); BASO % 0.6 % (0.0-1.0); EOS # 0.1 10^3/uL (0.0-0.50); EOS % 1.4 % (0.0-3.0); HEMATOCRIT 46.8 % (42.0-52.0); HEMOGLOBIN 16.2 g/dl (14.0-18.0); IMMATURE GRANULOCYTE # 0.1 10^3/uL (0-0); IMMATURE GRANULOCYTE % 1.7 % (0-0); LYMPH # 1.8 10^3/uL (1.5-4.5); LYMPH % 23.8 % (24.0-44.0); MEAN CORPUSCULAR HEMOGLOBIN 29.8 pg (27.0-33.0); MEAN CORPUSCULAR HGB CONC 34.6 g/dl (32.0-36.5); MEAN CORPUSCULAR VOLUME 86.2 fl (80.0-96.0); MONO # 0.5 10^3/uL (0.0-0.8); MONO % 6.8 % (0.0-5.0); NEUTROPHILS # 5.1 10^3/uL (1.8-7.7); NEUTROPHILS % 65.7 % (36.0-66.0); PLATELET COUNT, AUTOMATED 274 10^3/uL (150-450); RED BLOOD COUNT 5.43 10^6/uL (4.30-6.10); RED CELL DISTRIBUTION WIDTH 12.7 % (11.5-14.5); WHITE BLOOD COUNT 7.7 10^3/uL (4.0-10.0)
[2017-02-09 12:19] LABS: ESTIMATED AVERAGE GLUCOSE 111 MG/DL (60-110); HEMOGLOBIN A1c 5.5 %
[2017-02-09 12:23] LABS: TOTAL 25(OH) VITAMIN D 35.1 NG/ML (30.0-100.0)
[2017-02-09 12:33] LABS: ALBUMIN 4.2 GM/DL (3.2-5.2); ALBUMIN/GLOBULIN RATIO 1.17 (1.00-1.93); ALKALINE PHOSPHATASE 96 U/L (45-117); ALT/SGPT 24 U/L (12-78); ANION GAP 4 MEQ/L (8-16); AST/SGOT 16 U/L (7-37); BILIRUBIN,TOTAL 0.4 MG/DL (0.2-1.0); BLOOD UREA NITROGEN 11 MG/DL (7-18); CALCIUM LEVEL 9.1 MG/DL (8.5-10.1); CARBON DIOXIDE LEVEL 31 MEQ/L (21-32); CHLORIDE LEVEL 106 MEQ/L (98-107); CHOLESTEROL LEVEL 205 MG/DL (<200); CHOLESTEROL RISK RATIO 4.767 (<5); CREATININE FOR GFR 0.79 MG/DL (0.70-1.30); FREE T4 0.77 NG/DL (0.76-1.46); GLOMERULAR FILTRATION RATE > 60.0 (>60); GLUCOSE, FASTING 97 MG/DL (70-105); HDL CHOLESTEROL 43 MG/DL (>40); LDL CHOLESTEROL 136.4 MG/DL (<100); NON-HDL-C 162 MG/DL; PHENYTOIN (DILANTIN) 8.4 UG/ML (10.0-20.0); POTASSIUM SERUM 4.1 MEQ/L (3.5-5.1); SODIUM LEVEL 141 MEQ/L (136-145); TOTAL PROTEIN 7.8 GM/DL (6.4-8.2); TRIGLYCERIDES LEVEL 128 MG/DL (<150)
== END ==
LOC: M LAB 11:35
DX: R56.9 Unspecified convulsions (principal)
CPT/HCPCS: 80185

== ENCOUNTER 2017-02-12 13:47 | Emergency (ER) | payer MEDICAID ==
[2017-02-12] MEDS: DERMABOND TOPICAL SKIN ADHESIVE TOP (14:44)
== END 2017-02-12 15:28 | disposition home or self-care (01) ==
LOC: M ED 13:47
DX: S61.215A Laceration without foreign body of left ring finger without damage to nail, initial encounter (principal); W26.0XXA Contact with knife, initial encounter; Y92.018 Other place in single-family (private) house as the place of occurrence of the external cause; Y93.G1 Activity, food preparation and clean up; J45.909 Unspecified asthma, uncomplicated; M81.0 Age-related osteoporosis without current pathological fracture; F33.9 Major depressive disorder, recurrent, unspecified; F41.9 Anxiety disorder, unspecified; R56.9 Unspecified convulsions; Z79.899 Other long term (current) drug therapy; Z91.048 Other nonmedicinal substance allergy status
CPT/HCPCS: 12001

== ENCOUNTER → 2017-03-20 | Outpatient (REF) | payer MEDICAID | LOC: M LAB REF 22:01 | DX: J11.1 Influenza due to unidentified influenza virus with other respiratory manifestations (principal) | CPT/HCPCS: 87633 ==

== ENCOUNTER 2017-06-27 19:49 | Emergency (ER) | payer MEDICAID ==
[2017-06-27] MEDS: NS 1,000 ML IV (20:24)
[2017-06-27 20:47] LABS: BASO # 0.1 10^3/uL (0.0-0.2); BASO % 0.6 % (0.0-1.0); EOS # 0.2 10^3/uL (0.0-0.50); EOS % 1.8 % (0.0-3.0); HEMATOCRIT 46.4 % (42.0-52.0); HEMOGLOBIN 15.8 g/dl (13.5-17.5); IMMATURE GRANULOCYTE % 1.9 % (0-3.0); LYMPH % 22.4 % (24.0-44.0); MEAN CORPUSCULAR HEMOGLOBIN 29.6 pg (27.0-33.0); MEAN CORPUSCULAR HGB CONC 34.1 g/dl (32.0-36.5); MEAN CORPUSCULAR VOLUME 86.9 fl (80.0-96.0); MONO # 0.7 10^3/uL (0.0-0.8); MONO % 8.2 % (0.0-5.0); NEUTROPHILS # 5.9 10^3/uL (1.8-7.7); NEUTROPHILS % 65.1 % (36.0-66.0); PLATELET COUNT, AUTOMATED 240 10^3/uL (150-450); RED BLOOD COUNT 5.34 10^6/uL (4.30-6.10); RED CELL DISTRIBUTION WIDTH 13.2 % (11.5-14.5)
[2017-06-27 21:01] LABS: ANION GAP 5 MEQ/L (8-16); BLOOD UREA NITROGEN 12 MG/DL (7-18); CARBON DIOXIDE LEVEL 30 MEQ/L (21-32); CHLORIDE LEVEL 107 MEQ/L (98-107); CPK CREATINE PHOSPHOKINASE 146 U/L (39-308); CREATININE FOR GFR 0.76 MG/DL (0.70-1.30); GLOMERULAR FILTRATION RATE > 60.0 (>60); GLUCOSE, FASTING 110 MG/DL (70-100); PHENYTOIN (DILANTIN) 2.6 UG/ML (10.0-20.0); POTASSIUM SERUM 4.1 MEQ/L (3.5-5.1); SODIUM LEVEL 142 MEQ/L (136-145); TROPONIN I < 0.02 NG/ML (< 0.10)
[2017-06-27 21:02] LABS: CK-MB VALUE MASS 2.3 NG/ML (<3.6); MB/CK RELATIVE INDEX 1.57 (< OR =4)
[2017-06-30 00:08] LABS: LAMOTRIGINE (LAMICTAL) 4.2 ug/mL (2.0-20.0)
== END 2017-06-27 23:06 | disposition home or self-care (01) ==
LOC: M ED 19:49
DX: G40.909 Epilepsy, unspecified, not intractable, without status epilepticus (principal); Z79.899 Other long term (current) drug therapy; Z88.8 Allergy status to other drugs, medicaments and biological substances
CPT/HCPCS: 93005

== ENCOUNTER 2017-07-06 17:42 | Emergency (ER) | payer MEDICAID ==
[2017-07-06] MEDS: AUGMENTIN 875 MG TAB PO (18:25)
== END 2017-07-06 20:17 | disposition home or self-care (01) ==
LOC: M ED 17:42
DX: S80.872A Other superficial bite, left lower leg, initial encounter (principal); S80.812A Abrasion, left lower leg, initial encounter; W54.0XXA Bitten by dog, initial encounter; Y92.410 Unspecified street and highway as the place of occurrence of the external cause; J45.909 Unspecified asthma, uncomplicated; I10 Essential (primary) hypertension; E78.9 Disorder of lipoprotein metabolism, unspecified; Z87.820 Personal history of traumatic brain injury; Z79.899 Other long term (current) drug therapy; Z91.018 Allergy to other foods
CPT/HCPCS: 99282

== ENCOUNTER → 2017-07-06 | Outpatient (CLI) | payer MEDICAID ==
[2017-07-10 08:06] LABS: LAMOTRIGINE (LAMICTAL) 6.4 ug/mL (2.0-20.0)
[2017-07-10 08:06] LABS: PHENYTOIN,FREE None Detected ug/mL (1.0-2.0); PHENYTOIN,TOTAL 1.6 ug/mL (10.0-20.0)
== END ==
LOC: M LAB 17:17
DX: G40.909 Epilepsy, unspecified, not intractable, without status epilepticus (principal)

== ENCOUNTER → 2017-10-24 | Outpatient (CLI) | payer MEDICAID ==
[2017-10-24 13:07] LABS: PHENYTOIN (DILANTIN) 1.4 UG/ML (10.0-20.0)
[2017-10-26 09:57] LABS: LAMOTRIGINE (LAMICTAL) 11.7 ug/mL (2.0-20.0)
== END ==
LOC: M LAB 11:12
DX: G40.909 Epilepsy, unspecified, not intractable, without status epilepticus (principal)
CPT/HCPCS: 80185

== ENCOUNTER 2017-11-19 11:52 | Emergency (ER) | payer MEDICAID ==
[2017-11-19 16:01] LABS: BEDSIDE GLUCOSE 94 MG/DL (70-105)
[2017-11-19 16:08] LABS: BASO # 0.1 10^3/uL (0.0-0.2); BASO % 0.7 % (0.0-1.0); EOS # 0.1 10^3/uL (0.0-0.50); EOS % 1.6 % (0.0-3.0); HEMATOCRIT 48.1 % (42.0-52.0); HEMOGLOBIN 16.2 g/dl (13.5-17.5); LYMPH # 2.3 10^3/uL (1.5-4.5); LYMPH % 27.5 % (24.0-44.0); MEAN CORPUSCULAR HEMOGLOBIN 29.4 pg (27.0-33.0); MEAN CORPUSCULAR HGB CONC 33.7 g/dl (32.0-36.5); MEAN CORPUSCULAR VOLUME 87.3 fl (80.0-96.0); MONO # 0.6 10^3/uL (0.0-0.8); MONO % 6.9 % (0.0-5.0); NEUTROPHILS # 5.2 10^3/uL (1.8-7.7); NEUTROPHILS % 62.3 % (36.0-66.0); PLATELET COUNT, AUTOMATED 266 10^3/uL (150-450); RED BLOOD COUNT 5.51 10^6/uL (4.30-6.10); WHITE BLOOD COUNT 8.4 10^3/uL (4.0-10.0)
[2017-11-19 16:39] LABS: ALBUMIN 4.1 GM/DL (3.2-5.2); ALBUMIN/GLOBULIN RATIO 1.17 (1.00-1.93); ALKALINE PHOSPHATASE 99 U/L (45-117); ALT/SGPT 33 U/L (12-78); ANION GAP 9 MEQ/L (8-16); AST/SGOT 19 U/L (7-37); BILIRUBIN,DIRECT < 0.1 MG/DL (0.0-0.2); BILIRUBIN,TOTAL 0.4 MG/DL (0.2-1.0); BLOOD UREA NITROGEN 10 MG/DL (7-18); CALCIUM LEVEL 8.9 MG/DL (8.5-10.1); CARBON DIOXIDE LEVEL 26 MEQ/L (21-32); CHLORIDE LEVEL 107 MEQ/L (98-107); GLOMERULAR FILTRATION RATE > 60.0 (>60); GLUCOSE, FASTING 89 MG/DL (70-100); POTASSIUM SERUM 4.3 MEQ/L (3.5-5.1); SODIUM LEVEL 142 MEQ/L (136-145); TOTAL PROTEIN 7.6 GM/DL (6.4-8.2)
== END 2017-11-19 19:32 | disposition home or self-care (01) ==
LOC: M ED 11:52
DX: J06.9 Acute upper respiratory infection, unspecified (principal); J45.909 Unspecified asthma, uncomplicated; G40.909 Epilepsy, unspecified, not intractable, without status epilepticus; Z79.899 Other long term (current) drug therapy
CPT/HCPCS: 71045

== ENCOUNTER → 2018-02-26 | Outpatient (CLI) | payer MEDICAID ==
[~2018-02-26] MED LIST changes: +AUGM875T28 PO; +GABA-1171; +GABA-845 PO; +LAMO100T; -LAMO200T PO; +LAMO200T2; +LAMO200T2 PO; +PHEN100C
[2018-02-26 07:24] LABS: BASO % 0.5 % (0.0-1.0); EOS # 0.1 10^3/uL (0.0-0.50); EOS % 2.2 % (0.0-3.0); HEMATOCRIT 45.5 % (42.0-52.0); HEMOGLOBIN 15.7 g/dl (13.5-17.5); LYMPH # 1.8 10^3/uL (1.5-4.5); LYMPH % 29.8 % (24.0-44.0); MEAN CORPUSCULAR HEMOGLOBIN 29.8 pg (27.0-33.0); MEAN CORPUSCULAR HGB CONC 34.5 g/dl (32.0-36.5); MEAN CORPUSCULAR VOLUME 86.3 fl (80.0-96.0); MONO # 0.5 10^3/uL (0.0-0.8); MONO % 8.9 % (0.0-5.0); NEUTROPHILS # 3.5 10^3/uL (1.8-7.7); NEUTROPHILS % 57.8 % (36.0-66.0); PLATELET COUNT, AUTOMATED 224 10^3/uL (150-450); RED BLOOD COUNT 5.27 10^6/uL (4.30-6.10)
[2018-02-26 07:42] LABS: HEMOGLOBIN A1c 5.6 %
[2018-02-26 08:04] LABS: ALT/SGPT 32 U/L (12-78); BILIRUBIN,TOTAL 0.5 MG/DL (0.2-1.0); BLOOD UREA NITROGEN 14 MG/DL (7-18); CALCIUM LEVEL 9.1 MG/DL (8.5-10.1); CARBON DIOXIDE LEVEL 23 MEQ/L (21-32); CHLORIDE LEVEL 107 MEQ/L (98-107); CHOLESTEROL LEVEL 173 MG/DL (<200); CHOLESTEROL RISK RATIO 4.435 (<5); CREATININE FOR GFR 0.77 MG/DL (0.70-1.30); GLOMERULAR FILTRATION RATE > 60.0 (>60); GLUCOSE, FASTING 98 MG/DL (70-100); HDL CHOLESTEROL 39 MG/DL (>40); LDL CHOLESTEROL 118 MG/DL (<100); NON-HDL-C 134 MG/DL; PHENYTOIN (DILANTIN) 1.4 UG/ML (10.0-20.0); POTASSIUM SERUM 4.2 MEQ/L (3.5-5.1); SODIUM LEVEL 139 MEQ/L (136-145); TOTAL PROTEIN 7.3 GM/DL (6.4-8.2); TRIGLYCERIDES LEVEL 79 MG/DL (<150)
[2018-02-28 11:03] LABS: LAMOTRIGINE (LAMICTAL) 7.4 ug/mL (2.0-20.0)
== END ==
LOC: M LAB 06:55
PROVIDERS: ATTEND Nurse Practitioner Adult Health
DX: E78.41 Elevated Lipoprotein(a) (principal)

== ENCOUNTER 2018-03-14 12:51 | Emergency (ER) | payer MEDICAID ==
[~2018-03-14] VITALS: Ht 175.3 cm; Wt 158.6 kg
[2018-03-14] MEDS ORDERED: CLOB10TA (12:57)
[2018-03-14] MEDS ORDERED: CALCTAB93 (12:57)
--- NOTE | 2018-03-14 14:15 | REP ---
Right elbow series: Four views. History: Injury in a fall. Findings: Four views of the right elbow are compared with the prior study from February 21, 2008. Bones, joints, and soft tissues are unremarkable. There is no evidence of fracture, subluxation or joint effusion. Impression: Negative radiographs of the right elbow. Electronically Signed by Lobo Guerra MD 03/14/2018 02:06 P
[2018-03-14 14:42] VITALS: BP 141/78
== END 2018-03-14 14:43 | disposition home or self-care (01) ==
LOC: M ED 12:51
DX: S50.01XA Contusion of right elbow, initial encounter (principal); W19.XXXA Unspecified fall, initial encounter; Y92.410 Unspecified street and highway as the place of occurrence of the external cause; Y93.9 Activity, unspecified; Y99.9 Unspecified external cause status; J45.909 Unspecified asthma, uncomplicated; G89.29 Other chronic pain; Z79.899 Other long term (current) drug therapy; Z88.8 Allergy status to other drugs, medicaments and biological substances

== ENCOUNTER 2018-05-06 05:00 | Emergency (ER) | payer MEDICAID ==
[~2018-05-06] VITALS: Ht 175.3 cm; Wt 158.2 kg
[~2018-05-06 05:00] MED LIST changes: -ACET50TA PO; +CALCTAB93; +CLOB10TA; -DOCU10ELUD PO; +DOCU5LIQ PO; +MAPA500T17 PO
[2018-05-06 05:01] VITALS: BP 142/94
[2018-05-06] MEDS ORDERED: DILA100C PO (05:12)
[2018-05-06] MEDS ORDERED: VITA-176 PO (05:12)
[2018-05-06] MEDS ORDERED: TETRACAINE 0.5% OPHTH SOLN 4ML OS ONE (06:00)
[2018-05-06] MEDS ORDERED: FLUORESCEIN OPHTH 1 MG STRIP OS ONE (06:00)
[2018-05-06] MEDS ORDERED: ERYTOIN8 OS (06:09)
== END 2018-05-06 06:19 | disposition home or self-care (01) ==
LOC: M ED 05:00
DX: S05.02XA Injury of conjunctiva and corneal abrasion without foreign body, left eye, initial encounter (principal); X58.XXXA Exposure to other specified factors, initial encounter; Y92.9 Unspecified place or not applicable; Y93.9 Activity, unspecified; Y99.9 Unspecified external cause status; I10 Essential (primary) hypertension; J45.909 Unspecified asthma, uncomplicated; G89.29 Other chronic pain; M54.9 Dorsalgia, unspecified; F41.9 Anxiety disorder, unspecified; F32.9 Major depressive disorder, single episode, unspecified; M81.0 Age-related osteoporosis without current pathological fracture; Z79.899 Other long term (current) drug therapy; Z88.8 Allergy status to other drugs, medicaments and biological substances

== ENCOUNTER → 2018-07-17 | Outpatient (CLI) | payer MEDICAID ==
[~2018-07-17] MED LIST changes: +ERYTOIN8 OS; +VITA-176 PO
[2018-07-17 14:14] LABS: BLOOD UREA NITROGEN 11 MG/DL (7-18); CALCIUM LEVEL 9.5 MG/DL (8.5-10.1); CARBON DIOXIDE LEVEL 27 MEQ/L (21-32); CHLORIDE LEVEL 106 MEQ/L (98-107); GLOMERULAR FILTRATION RATE > 60.0 (>60); GLUCOSE, FASTING 97 MG/DL (70-100); SODIUM LEVEL 141 MEQ/L (136-145)
== END ==
LOC: M LAB 13:36
PROVIDERS: ATTEND Nurse Practitioner Adult Health
DX: R60.0 Localized edema (principal)

== ENCOUNTER 2018-08-19 11:15 | Emergency (ER) | payer MEDICAID ==
[~2018-08-19] VITALS: Ht 175.3 cm; Wt 168.2 kg
[2018-08-19] MEDS ORDERED: FURO40TA2 (11:25)
[2018-08-19 13:58] LABS: BASO # 0.1 10^3/uL (0.0-0.2); BASO % 0.8 % (0.0-1.0); EOS # 0.1 10^3/uL (0.0-0.50); EOS % 1.4 % (0.0-3.0); HEMATOCRIT 44.8 % (42.0-52.0); HEMOGLOBIN 15.3 g/dl (13.5-17.5); LYMPH # 1.7 10^3/uL (1.5-4.5); LYMPH % 23.3 % (24.0-44.0); MEAN CORPUSCULAR HEMOGLOBIN 30.2 pg (27.0-33.0); MEAN CORPUSCULAR HGB CONC 34.2 g/dl (32.0-36.5); MEAN CORPUSCULAR VOLUME 88.5 fl (80.0-96.0); MONO # 0.6 10^3/uL (0.0-0.8); MONO % 7.9 % (0.0-5.0); NEUTROPHILS # 4.7 10^3/uL (1.8-7.7); NEUTROPHILS % 64.9 % (36.0-66.0); PLATELET COUNT, AUTOMATED 229 10^3/uL (150-450); RED BLOOD COUNT 5.06 10^6/uL (4.30-6.10); WHITE BLOOD COUNT 7.3 10^3/uL (4.0-10.0)
--- NOTE | 2018-08-19 14:17 | REP ---
Left lower extremity Duplex Doppler venous ultrasound: Real time compression and duplex Doppler interrogation of the left lower extremity deep venous system is performed. The left common femoral, superficial femoral and popliteal veins are fully compressible with transducer pressure and demonstrate normal spontaneous and phasic flow, without evidence of deep venous thrombosis. Impression: No evidence of deep venous thrombosis of the left lower extremity femoral popliteal venous system. Electronically Signed by Jose David Colorado MD 08/19/2018 02:08 P
[2018-08-19 14:28] LABS: ALT/SGPT 29 U/L (12-78); BILIRUBIN,DIRECT < 0.1 MG/DL (0.0-0.2); BILIRUBIN,TOTAL 0.4 MG/DL (0.2-1.0); BLOOD UREA NITROGEN 13 MG/DL (7-18); CARBON DIOXIDE LEVEL 26 MEQ/L (21-32); CHLORIDE LEVEL 105 MEQ/L (98-107); CREATININE FOR GFR 0.85 MG/DL (0.70-1.30); GLOMERULAR FILTRATION RATE > 60.0 (>60); GLUCOSE, FASTING 102 MG/DL (70-100); NT-PRO BNP 6 PG/ML (<125); POTASSIUM SERUM 4.1 MEQ/L (3.5-5.1); SODIUM LEVEL 139 MEQ/L (136-145); TOTAL PROTEIN 7.5 GM/DL (6.4-8.2)
--- NOTE | 2018-08-19 14:32 | REP ---
Chest x-ray: Two views. History: Edema . Comparison study: November 19, 2017 . Findings: The lungs are well inflated and free of infiltrate. The pleural angles are sharp. The heart size is normal. Pulmonary vasculature is not increased. No significant bony abnormality is seen. Impression: Negative chest x-ray. Electronically Signed by Lobo Guerra MD 08/19/2018 02:23 P
[2018-08-19 14:47] LABS: APPEARANCE, URINE CLEAR (CLEAR); BACTERIA, URINE AUTO NEGATIVE (NEGATIVE); BILIRUBIN, URINE AUTO NEGATIVE (NEGATIVE); BLOOD, URINE BLOOD NEGATIVE (NEGATIVE); COLOR, URINE YELLOW (YELLOW); GLUCOSE, URINE (UA) AUTO NEGATIVE (NEGATIVE); KETONE, URINE AUTO NEGATIVE (NEGATIVE); LEUKOCYTE ESTERASE, URINE AUTO NEGATIVE (NEGATIVE); NITRITE, URINE AUTO NEGATIVE (NEGATIVE); PROTEIN, URINE AUTO NEGATIVE (NEGATIVE); RBC, URINE AUTO 1 /HPF (0-3); SPECIFIC GRAVITY URINE AUTO 1.012 (1.002-1.035); SQUAMOUS EPITHELIAL CELL UR AU 0 /HPF (0-6); UROBILINOGEN, URINE AUTO 0.2 mg/dL (0.0-2.0); WBC, URINE AUTO 0 /HPF (0-3)
[2018-08-19 15:16] VITALS: BP 122/71
--- NOTE | 2018-08-19 20:53 | ECGEPIP ---
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 Order Number: [id number] Reading MD: Junior Salas Measurements Intervals [place] Rate: 74 P: 46 ME: 187 QRS: 2 QRSD: 125 T: 44 QT: 358 QTc: 399 Interpretive Statements SINUS RHYTHM MODERATE INTRAVENTRICULAR CONDUCTION DELAY Nonspecific ST-T wave abnormalities Similar to tracing done 11-19-17 Electronically Signed on 08-19-2018 20:53:06 EDT by Junior Salas
== END 2018-08-19 15:18 | disposition home or self-care (01) ==
LOC: M ED 11:15
DX: R60.0 Localized edema (principal); Z88.8 Allergy status to other drugs, medicaments and biological substances; Z79.899 Other long term (current) drug therapy

== ENCOUNTER 2018-09-09 08:49 | Emergency (ER) | payer OTHER, MEDICAID ==
[~2018-09-09] VITALS: Ht 175.3 cm; Wt 168.2 kg
[~2018-09-09 08:49] MED LIST changes: -CLOB10TA; +CLOB10TA PO; +FURO40TA2 PO
[2018-09-09] MEDS ORDERED: NS 500 ML IV ONE (09:00)
[2018-09-09] MEDS ORDERED: ISOVUE-370 76% 100ML VIAL (Q9967) As Ordered ONE (09:33)
[2018-09-09 10:11] LABS: BASO # 0.1 10^3/uL (0.0-0.2); BASO % 0.9 % (0.0-1.0); EOS # 0.1 10^3/uL (0.0-0.50); EOS % 1.4 % (0.0-3.0); HEMATOCRIT 44.8 % (42.0-52.0); HEMOGLOBIN 15.1 g/dl (13.5-17.5); LYMPH # 1.4 10^3/uL (1.5-4.5); LYMPH % 19.3 % (24.0-44.0); MEAN CORPUSCULAR HEMOGLOBIN 29.3 pg (27.0-33.0); MEAN CORPUSCULAR HGB CONC 33.7 g/dl (32.0-36.5); MONO # 0.5 10^3/uL (0.0-0.8); MONO % 6.6 % (0.0-5.0); NEUTROPHILS # 4.9 10^3/uL (1.8-7.7); NEUTROPHILS % 70.1 % (36.0-66.0); PLATELET COUNT, AUTOMATED 198 10^3/uL (150-450); RED BLOOD COUNT 5.15 10^6/uL (4.30-6.10)
[2018-09-09 10:22] LABS: INR 0.96; PROTHROMBIN TIME 12.5 SECONDS (11.8-14.0)
[2018-09-09 10:23] LABS: PARTIAL THROMBOPLASTIN TIME 26.5 SECONDS (25.0-38.4)
[2018-09-09 10:26] LABS: CK-MB VALUE MASS 1.9 NG/ML (<3.6); CPK CREATINE PHOSPHOKINASE 154 U/L (39-308); MB/CK RELATIVE INDEX 1.23 (< OR =4); TROPONIN I < 0.02 NG/ML (< 0.10)
[2018-09-09 10:28] LABS: ALBUMIN 3.9 GM/DL (3.2-5.2); ALT/SGPT 31 U/L (12-78); AMYLASE 72 U/L (25-115); BILIRUBIN,DIRECT < 0.1 MG/DL (0.0-0.2); BILIRUBIN,TOTAL 0.3 MG/DL (0.2-1.0); LIPASE 438 U/L (73-393); TOTAL PROTEIN 7.2 GM/DL (6.4-8.2)
--- NOTE | 2018-09-09 10:29 | REP ---
CT HEAD WITHOUT CONTRAST: HISTORY: Altered mental status. COMPARISON: 11/19/2017. An area of decreased attenuation is present in the posterior right temporal lobe. There is dilatation of the cortical sulci and atrium and occipital horn of the right lateral ventricle. This represents an old infarction. There is no intraparenchymal hemorrhage, mass, or midline shift. The ventricular system and cortical sulci are dilated consistent with minimal volume loss. There is no extracerebral collection. There is no fracture. The visualized sinuses are clear. IMPRESSION: 1. 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 2. Minimal volume loss. Electronically Signed by Graham Will MD 09/09/2018 11:19 A
--- NOTE | 2018-09-09 10:32 | REP ---
CT CERVICAL SPINE WITHOUT CONTRAST: HISTORY: Altered mental status. There is no acute fracture or subluxation. Disc bulges are present at the C4-5 through C6-7 levels. Uncinate process hypertrophy is present at the C4-5 and C6-7 levels. This produces minimal narrowing of the neural foramina. There is no other disc bulge or herniation. The remaining neural foramina are patent. The C5-6 and C6-7 intervertebral discs are decreased in height consistent with disc degeneration. A bone island is present in the T1 vertebral body. There is loss of the normal lordotic curve. IMPRESSION: 1. There is no acute fracture or subluxation. 2. There is cervical spondylosis at the C4-5 through C6-7 levels. Electronically Signed by Graham Will MD 09/09/2018 11:20 A
--- NOTE | 2018-09-09 10:33 | REP ---
CT ABDOMEN AND PELVIS WITH IV CONTRAST: TECHNIQUE: Axial contrast enhanced images from the lung bases to the pubic symphysis using 100 mL Isovue 370 intravenous contrast material with multiplanar reformations. Liver, spleen, adrenals, pancreas and kidneys are normal in appearance. There is no abdominal aortic aneurysm. There is no adenopathy. There is no free air or free fluid. There is no bowel wall thickening. The appendix is normal. No pelvic mass is seen. Urinary bladder is mildly distended and grossly intact. There are old healed pelvic fractures noted with no evidence of acute fracture of the visualized osseous structures. There is no compression fracture of lumbar vertebral bodies. IMPRESSION: Old healed pelvic fractures. No acute pathology is seen in the abdomen or pelvis. Electronically Signed by Jose David Colorado MD 09/11/2018 07:41 A
--- NOTE | 2018-09-09 10:39 | REP ---
CT CHEST WITH IV CONTRAST: TECHNIQUE: Axial contrast enhanced images from the thoracic inlet to the upper abdomen using 100 mL Isovue 370 intravenous contrast material with multiplanar reformations. The heart is normal in size. Thoracic aorta is intact. There is no mediastinal, hilar or chest wall lymphadenopathy. There is no pleural or pericardial effusion. No infiltrate or pneumothorax is seen. The visualized osseous structures are intact. IMPRESSION: Negative CT chest with IV contrast with no post-traumatic findings. Electronically Signed by Jose David Colorado MD 09/11/2018 07:42 A
--- NOTE | 2018-09-09 10:51 | REP ---
LEFT SHOULDER, FOUR VIEWS: There is no evidence of an acute fracture, dislocation or intrinsic bone disease. IMPRESSION: No fracture or dislocation. Electronically Signed by Jose David Colorado MD 09/11/2018 07:42 A
--- NOTE | 2018-09-09 10:52 | REP ---
RIGHT HIP, TWO VIEWS: There is no evidence of an acute fracture, dislocation or intrinsic bone disease. IMPRESSION: No fracture or dislocation. Electronically Signed by Jose David Colorado MD 09/11/2018 07:42 A
--- NOTE | 2018-09-09 11:16 | REP ---
LATERAL KNEE SERIES, FIVE VIEWS: Bilateral knees performed. No acute fracture or dislocation is seen. There is no evidence of a joint effusion. There is mild sclerosis of the proximal right tibial fibular joint. There is minimal medial joint space narrowing bilaterally as well as minor bilateral patellofemoral compartment narrowing and tiny patellar spurs. There is an old healed fracture of the left tibia proximally. IMPRESSION: No acute fracture or dislocation. Electronically Signed by Jose David Colorado MD 09/11/2018 07:43 A
[2018-09-09 11:19] VITALS: BP 135/45
[2018-09-09 11:20] VITALS: O2SAT 98
[2018-09-09] MEDS ORDERED: ACETAMINOPHEN TAB 650MG DOSE (2X325MG) PO ONE (12:45)
--- NOTE | 2018-09-09 19:56 | ECGEPIP ---
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
== END 2018-09-09 13:16 | disposition home or self-care (01) ==
LOC: EDBD 08:49 → M ED 08:49
DX: S09.90XA Unspecified injury of head, initial encounter (principal); S40.012A Contusion of left shoulder, initial encounter; S20.219A Contusion of unspecified front wall of thorax, initial encounter; S80.00XA Contusion of unspecified knee, initial encounter; V13.9XXA Unspecified pedal cyclist injured in collision with car, pick-up truck or van in traffic accident, initial encounter; Y92.9 Unspecified place or not applicable; Y93.55 Activity, bike riding; Y99.9 Unspecified external cause status; M47.812 Spondylosis without myelopathy or radiculopathy, cervical region; R00.0 Tachycardia, unspecified; I44.0 Atrioventricular block, first degree; I21.19 ST elevation (STEMI) myocardial infarction involving other coronary artery of inferior wall; I10 Essential (primary) hypertension; F41.9 Anxiety disorder, unspecified; F32.9 Major depressive disorder, single episode, unspecified; Z72.0 Tobacco use; Z87.81 Personal history of (healed) traumatic fracture; Z79.899 Other long term (current) drug therapy; Z88.8 Allergy status to other drugs, medicaments and biological substances
CPT/HCPCS: 70450; 71260; 72125; 73030; 73502; 73564; 74177; 80047; 80076; 82150; 82550; 82553; 83690; 84484; 85025; 85610; 85730; 86850; 86900; 86901; 93005; 93041; 94760; 99285; Q9967

== ENCOUNTER 2018-09-15 15:01 | Emergency (ER) | payer OTHER, MEDICAID ==
[~2018-09-15] VITALS: Ht 175.3 cm; Wt 168.2 kg
[2018-09-15] MEDS ORDERED: BUME1TAB3 PO (15:14)
[2018-09-15] MEDS ORDERED: KEFL500C17 PO (18:01)
--- NOTE | 2018-09-15 18:05 | REPVR ---
EXAM: US Duplex Left Lower Extremity Veins, Limited EXAM DATE/TIME: 09/15/2018 6:01 PM CLINICAL HISTORY: 43 years old, male; Edema, localized and swelling (edema) of limb; Lower extremity, left; Additional info: Pain/increased swelling TECHNIQUE: Imaging protocol: Real-time Duplex ultrasound of the Left Lower Extremity with 2-D rice scale, color Doppler flow and spectral waveform analysis with image documentation. Limited exam focused on the left lower extremity veins. COMPARISON: US Duplex, Ext,LOWER veins,unilat LEFT 08/19/2018 1:56 PM FINDINGS: Examination limited by patient body habitus and poor acoustic characteristics. Left deep veins: Unremarkable. The common femoral, femoral, proximal profunda femoral and popliteal veins are patent without thrombus. Normal Doppler waveforms. Normal compressibility and/or augmentation response. Left superficial veins: Unremarkable. Saphenofemoral junction is patent without thrombus. Soft tissues: Unremarkable. IMPRESSION: No acute findings. No evidence of deep vein thrombosis. Electronically signed by: Seng Grider On 09/15/2018 18:05:24 PM
[2018-09-15 18:11] VITALS: BP 137/77
[2018-09-15] MEDS ORDERED: CEPHALEXIN 500 MG CAP PO ONE (18:15)
== END 2018-09-15 18:21 | disposition home or self-care (01) ==
LOC: M ED 15:01
DX: L03.116 Cellulitis of left lower limb (principal); R60.0 Localized edema; Z87.820 Personal history of traumatic brain injury; J45.909 Unspecified asthma, uncomplicated; M54.9 Dorsalgia, unspecified; Z79.899 Other long term (current) drug therapy; Z88.8 Allergy status to other drugs, medicaments and biological substances

== ENCOUNTER 2018-11-09 07:57 | Emergency (ER) | payer OTHER, MEDICAID ==
[~2018-11-09] VITALS: Ht 175.3 cm; Wt 168.2 kg
[~2018-11-09 07:57] MED LIST changes: +BUME1TAB3 PO; +KEFL500C17 PO
[2018-11-09] MEDS ORDERED: GABA-1171 (08:05)
[2018-11-09] MEDS ORDERED: CALC600T6 (08:05)
[2018-11-09] MEDS ORDERED: FURO80TA2 (08:05)
[2018-11-09] MEDS ORDERED: LISI10TA4 (08:05)
--- NOTE | 2018-11-09 09:12 | REP ---
Left shoulder three views : There is no fracture or dislocation. Mineralization and joint spaces are normal. There are no calcifications or foreign bodies. Impression: Negative the shoulder . Electronically Signed by Jose David Dang MD 11/09/2018 09:04 A
[2018-11-09] MEDS ORDERED: NAPROXEN 250 MG TAB PO ONE (09:15)
[2018-11-09] MEDS ORDERED: CYCL10TA PO (09:39)
[2018-11-09 09:50] VITALS: BP 134/80
== END 2018-11-09 09:51 | disposition home or self-care (01) ==
LOC: M ED 07:57
DX: M25.512 Pain in left shoulder (principal); V13.9XXA Unspecified pedal cyclist injured in collision with car, pick-up truck or van in traffic accident, initial encounter; Y92.410 Unspecified street and highway as the place of occurrence of the external cause; Y93.55 Activity, bike riding; Y99.9 Unspecified external cause status; Z79.899 Other long term (current) drug therapy; Z88.7 Allergy status to serum and vaccine; Z88.8 Allergy status to other drugs, medicaments and biological substances

== ENCOUNTER 2018-12-04 12:38 | Outpatient (RCR) | payer OTHER, MEDICAID ==
[~2018-12-04 12:38] MED LIST changes: +CALC600T6; +CYCL10TA PO; +FURO80TA2; +LISI10TA4
== END 2018-12-05 ==
LOC: M PT 12:38
PROVIDERS: ATTEND Physician Assistant Surgical
DX: Z47.89 Encounter for other orthopedic aftercare (principal); S40.012A Contusion of left shoulder, initial encounter; X58.XXXA Exposure to other specified factors, initial encounter; Y92.9 Unspecified place or not applicable; Y93.9 Activity, unspecified; Y99.9 Unspecified external cause status

== ENCOUNTER → 2018-12-11 | Outpatient (CLI) | payer MEDICAID ==
[2018-12-11 11:18] LABS: BASO # 0.1 10^3/uL (0.0-0.2); BASO % 0.7 % (0.0-1.0); EOS # 0.1 10^3/uL (0.0-0.5); EOS % 1.5 % (0.0-3.0); HEMATOCRIT 45.1 % (42.0-52.0); HEMOGLOBIN 14.5 g/dl (13.5-17.5); LYMPH # 1.8 10^3/uL (1.5-5.0); MEAN CORPUSCULAR HEMOGLOBIN 29.2 pg (27.0-33.0); MEAN CORPUSCULAR HGB CONC 32.2 g/dl (32.0-36.5); MEAN CORPUSCULAR VOLUME 90.9 fl (80.0-96.0); MONO # 0.5 10^3/uL (0.0-0.8); NEUTROPHILS # 4.8 10^3/uL (1.5-8.5); NEUTROPHILS % 65.6 % (36.0-66.0); PLATELET COUNT, AUTOMATED 205 10^3/uL (150-450); RED BLOOD COUNT 4.96 10^6/uL (4.30-6.10); WHITE BLOOD COUNT 7.3 10^3/uL (4.0-10.0)
[2018-12-11 11:40] LABS: HEMOGLOBIN A1c 5.5 %
[2018-12-11 11:52] LABS: ALBUMIN 3.7 GM/DL (3.2-5.2); ALT/SGPT 29 U/L (12-78); BILIRUBIN,TOTAL 0.5 MG/DL (0.2-1.0); BLOOD UREA NITROGEN 10 MG/DL (7-18); CALCIUM LEVEL 9.1 MG/DL (8.5-10.1); CARBON DIOXIDE LEVEL 30 MEQ/L (21-32); CHLORIDE LEVEL 107 MEQ/L (98-107); CHOLESTEROL LEVEL 157 MG/DL (<200); CHOLESTEROL RISK RATIO 3.651 (<5); CREATININE FOR GFR 0.76 MG/DL (0.70-1.30); FREE T4 0.85 NG/DL (0.76-1.46); GLOMERULAR FILTRATION RATE > 60.0 (>60); GLUCOSE, FASTING 86 MG/DL (70-100); HDL CHOLESTEROL 43 MG/DL (>40); LDL CHOLESTEROL 93 MG/DL (<100); NON-HDL-C 114 MG/DL; POTASSIUM SERUM 4.2 MEQ/L (3.5-5.1); SODIUM LEVEL 142 MEQ/L (136-145); TOTAL PROTEIN 6.7 GM/DL (6.4-8.2); TRIGLYCERIDES LEVEL 104 MG/DL (<150)
== END ==
LOC: M LAB 10:23
PROVIDERS: ATTEND Internal Medicine Cardiovascular Disease
DX: E78.41 Elevated Lipoprotein(a) (principal); R56.9 Unspecified convulsions; Z87.820 Personal history of traumatic brain injury; Z79.899 Other long term (current) drug therapy

== ENCOUNTER 2018-12-31 15:15 | Outpatient (RCR) | payer OTHER, MEDICAID | END 2019-01-04 | LOC: M PT 15:15 | PROVIDERS: ATTEND Physician Assistant Surgical | DX: Z47.89 Encounter for other orthopedic aftercare (principal); S40.012A Contusion of left shoulder, initial encounter; S46.012A Strain of muscle(s) and tendon(s) of the rotator cuff of left shoulder, initial encounter; X58.XXXA Exposure to other specified factors, initial encounter; Y92.9 Unspecified place or not applicable; Y93.9 Activity, unspecified; Y99.9 Unspecified external cause status ==

== ENCOUNTER → 2018-12-31 | Outpatient (CLI) | payer MEDICAID ==
[~2018-12-31] MED LIST changes: -LAMO100T; +LAMO100T3; -LAMO200T2; -LAMO200T2 PO; +LAMO200T3; +LAMO200T3 PO
[2019-01-06 14:10] LABS: CLOZAPINE 1 None Detected ng/mL (350-650); CLOZAPINE 2 None Detected (Not Estab.); LAMOTRIGINE (LAMICTAL) 12.1 ug/mL (2.0-20.0)
== END ==
LOC: M LAB 16:15
PROVIDERS: ATTEND Psychiatry & Neurology Neurology
DX: G40.219 Localization-related (focal) (partial) symptomatic epilepsy and epileptic syndromes with complex partial seizures, intractable, without status epilepticus (principal)

== ENCOUNTER → 2019-01-06 | Outpatient (REF) ==
--- NOTE | 2019-01-06 11:00 | REP ---
SKULL, AP AND LATERAL: AP and lateral views of the skull are performed. No fracture or bone lesion is seen. Electronically Signed by Jose David Colorado MD 01/06/2019 11:57 A
== END ==
LOC: M LAB 09:49